=== PATIENT | male | born 1965 | race Caucasian/White ===

== ENCOUNTER → 2017-09-15 | Outpatient (CLI) | payer OTHER ==
--- NOTE | 2017-09-15 17:06 | PN ---
PROGRESS NOTE A 51-year-old male patient with severe ARPIT with an AHI of 51. The patient is coming in for a yearly check. I noted that his compliance has gotten worse over the past year and he mainly claims that this is related to the poor mask fit that he is getting. He is using a Mirage FX nose mask. He was somnolent and sleepy, as he is not using the CPAP on a regular basis. Note that during his last evaluation, I increase the CPAP pressure from 13 to 14, knowing that he had some residual apneas and hypopneas, while on treatment. His weight has been essentially stable. He has no other new problems or complaints. The patient is committed to go back on the CPAP therapy, especially that he has become much more somnolent and sleepy over the past 6 months. BP is 113/72, pulse is 88, respirations 16, temperature 97.4, saturation 97% on room air. Weight is 266. Height is 5 feet 10 inches, BMI 37.6. GENERAL APPEARANCE: Calm, comfortable. Head is atraumatic, normocephalic. Neck is short, supple. There is crowding of posterior pharynx. There is no goiter or neck masses. LUNGS: Diminished breath sounds. Otherwise clear. Heart sounds are regular. Normal S1, S2. No S3, S4. No murmurs. Abdomen is soft, nontender. No organomegaly. EXTREMITIES: No edema. No cyanosis or clubbing. Skin is negative for any ulcerations or wounds. IMPRESSION: 1. Severe symptomatic obstructive sleep apnea with an apnea-hypopnea index of 51. The patient's use has been suboptimal in part related to a poor mask fit. 2. Hypersomnia. 3. Sleep fragmentation secondary to obstructive sleep apnea. 4. Obesity with a BMI of 37.6. PLAN: 1. The patient was educated about the use of CPAP and its importance. 2. The patient was admitted to an AirFit N10 nose mask. 3. The patient was given heated tubing. 4. The patient will go back on using his CPAP and see me back in a year's time, earlier if needed. I will be with the change in the mask interface, the treatment will be much more successful. Will continue to follow. MMODL / IJN: [id number] /
== END | disposition home or self-care (01) ==
LOC: SLEEP 15:39
PROVIDERS: ATTEND Internal Medicine Critical Care Medicine
DX: G47.33 Obstructive sleep apnea (adult) (pediatric) (principal); E66.9 Obesity, unspecified; Z99.89 Dependence on other enabling machines and devices; Z68.37 Body mass index [BMI] 37.0-37.9, adult

== ENCOUNTER → 2018-06-28 | Outpatient (CLI) | payer OTHER ==
--- NOTE | 2018-06-28 07:44 | US ---
EXAMINATION TYPE: US liver DATE OF EXAM: 06/28/2018 COMPARISON: 12/28/13 CLINICAL HISTORY: R94.5 Elevated liver enzymes. EXAM MEASUREMENTS: Liver Length: 16.7 cm Gallbladder Wall: 0.4 cm CBD: 0.4 cm Right Kidney: 8.8 x 4.8 x 6.2 cm Pancreas: Obscured by bowel gas Liver: Scanned intercostally, large, barrel chested male, best scan window. There is increased echog enicity of the hepatic parenchyma with diminished visualization of the portal triads most commonly re lating to hepatic steatosis and limiting evaluation for underlying hepatic masses. Gallbladder: Wall echo shadow sign indicates the gallbladder filled with gallstones. Evidence for sonographic Xiao's sign: no CBD: wnl Right Kidney: No hydronephrosis or masses seen IMPRESSION: 1. Hyperechoic hepatic echotexture suggestive of hepatic steatosis. Correlate with liver function errol ts. 2. Cholelithiasis without current sonographic evidence of acute cholecystitis.
== END | disposition home or self-care (01) ==
LOC: RADUSWWP 06:51
PROVIDERS: ATTEND Internal Medicine
DX: K80.20 Calculus of gallbladder without cholecystitis without obstruction (principal)
CPT/HCPCS: 76705

== ENCOUNTER 2018-09-23 06:46 | Day surgery (SDC) | payer OTHER ==
[2018-09-20 09:52] VITALS: BMI 36.2
[~2018-09-23 06:46] MED LIST: DEXAMETHASONE SOD PHOSPHATE 10 MG/ML 1 ML VIAL IV ONE; HEPARIN SODIUM,PORCINE 5,000 UNIT/ML 1 ML VIAL SQ ONE; LACTATED RINGERS 1,000 ML IV SCH; LIDOCAINE 1% 20 ML VIAL (10MG/ML) FOR IV START INTRADERMA PRN; ONDANSETRON 4 MG/2 ML VIAL IVP ONE; SCOPOLAMINE 1.5MG/72HR PATCH TRANSDERM ONE; ceFAZolin IN SWFI 2 GM/20 ML SYRINGE IVP ONE
[2018-09-23] MEDS ORDERED: MIDAZOLAM 2 MG/2 ML VIAL IV ONE (07:42)
[2018-09-23] MEDS ORDERED: GLYCOPYRROLATE 0.2 MG/ML 2 ML VIAL ONE (07:46)
[2018-09-23] MEDS ORDERED: SUCCINYLCHOLINE CHLORIDE 100 MG/5 ML SYR IV ONE (07:46)
[2018-09-23] MEDS ORDERED: METOPROLOL TARTRATE 5 MG/5 ML VIAL IVP ONE (07:46)
[2018-09-23] MEDS ORDERED: PHENYLEPHRINE-0.9% NACL SYG 1 MG/10 ML SYRINGE ONE (07:46)
[2018-09-23] MEDS ORDERED: PROPOFOL 10 MG/ML 20 ML VIAL IV ONE (07:46)
[2018-09-23] MEDS ORDERED: fentaNYL (PF) 50 MCG/ML 2 ML AMP ONE (07:46)
[2018-09-23] MEDS ORDERED: NEOSTIGMINE 1 MG/ML 10 ML VIAL ONE (07:46)
[2018-09-23] MEDS ORDERED: ROCURONIUM BROMIDE 10 MG/ML 10 ML VIAL IV ONE (07:46)
--- NOTE | 2018-09-23 07:55 | P.GSHP ---
History of Present Illness H&P Date: 09/23/18 Chief Complaint: Right upper quadrant pain This is a 52-year-old male referred from Dr. Mancera. Patient presents today for laparoscopic cholecystectomy. Patient's had complaints of right quadrant pain. His recent ultrasound shows a gallstone in the neck of the gallbladder. Past Medical History Past Medical History: Rheumatoid Arthritis (RA) Additional Past Medical History / Comment(s): past hx shingles History of Any Multi-Drug Resistant Organisms: None Reported Past Surgical History: Hernia Repair Past Anesthesia/Blood Transfusion Reactions: No Reported Reaction Smoking Status: Never smoker - Past Family History Mother Family Medical History: Deep Vein Thrombosis (DVT) Medications and Allergies Home Medications Medication Instructions Recorded Confirmed Type No Known Home Medications 09/20/18 09/23/18 History Allergies Allergy/AdvReac Type Severity Reaction Status Date / Time latex Allergy Rash/Hives Verified 09/23/18 07:08 Surgical - Exam Vital Signs Temp Pulse Resp BP Pulse Ox 98.3 F 119 H 18 139/79 97 09/23/18 07:28 09/23/18 07:28 09/23/18 07:28 09/23/18 07:28 09/23/18 07:28 - General well developed, well nourished, no distress - Eyes PERRL - ENT normal pinna - Neck no masses - Respiratory normal expansion - Cardiovascular Rhythm: regular - Abdomen Abdomen: soft, non tender Assessment and Plan Assessment: History of gallstones, we'll perform laparoscopic cholecystectomy.
[2018-09-23] MEDS ORDERED: BUPIVACAIN-EPI 0.5%-1:200,000 30 ML VIAL SQ ONE ×2 (08:16→08:24)
[2018-09-23 09:19] VITALS: TEMP 97.9
[2018-09-23] MEDS: HYDROmorphone 0.5 MG/0.5 ML SYRINGE IVP PRN ×2 (09:26→09:31)
[2018-09-23 09:28] VITALS: RESP 16
[2018-09-23] MEDS: fentaNYL (PF) 50 MCG/ML 2 ML AMP IVP ONE ×4 (09:37→10:03)
[2018-09-23] MEDS ORDERED: SODIUM CHLORIDE 0.9% 1,000 ML IV ONE (09:48)
[2018-09-23] MEDS ORDERED: HYDROcodone/APAP 7.5-325MG 1 EACH TAB PO ONE (10:30)
[2018-09-23 11:07] VITALS: BP 136/81; PULSE 107
--- NOTE | 2018-10-09 10:38 | P.OP ---
Date of Procedure: 09/23/18 Preoperative Diagnosis: Cholecystitis Postoperative Diagnosis: Cholecystitis Procedure(s) Performed: Laparoscopic cholecystectomy Anesthesia: NETTIE Surgeon: Naga Mitchell Pathology: other (Gallbladder) Condition: stable Disposition: PACU Description of Procedure: The patient was placed on the operating table. The patient received a general endotracheal tube anesthesia. The patients abdomen was prepped and draped in the usual sterile fashion. Through an infraumbilical stab incision, the fascia of the anterior abdominal wall was grasped with a pair of Kochers and then the Veress needle was placed in the peritoneal cavity. Position of the Veress needle was confirmed with positive drop test. The abdomen was then insufflated. After adequate insufflation, the 10 mm trocar was placed in the peritoneal cavity. Following this the laparoscope was placed in the peritoneal cavity. The patient was placed in the head-up, right side up position and then a 5 mm trocar was placed in the right lateral and right subcostal position under direct visualization. A 8 mm trocar was placed in the epigastric position. The gallbladder was grasped in the fundus and infundibulum. Traction on the gallbladder was placed in the lateral and the cephalad positions. The triangle of Calot was visualized.. The cystic duct was bluntly dissected until the union of the cystic duct and common bile duct was seen. The cystic duct was then divided and sealed with the Harmonic scissors. A PDS Endoloop was then placed throughout the cystic duct stump. The cystic artery divided and sealed with the Harmonic scissors. The gallbladder was then removed from the liver bed using Harmonic scissors. The gallbladder was then extracted through the epigastric port site. Operative field was checked for any bleeding spots and Harmonic scissors was used to coagulate the liver bed. The abdomen was irrigated. The trocars were removed. The skin was closed using interrupted 3-0 Vicryl suture. Dermabond dressing were applied. The patient tolerated the procedure well.
== END 2018-09-23 11:38 | disposition home or self-care (01) ==
LOC: OR 06:46
PROVIDERS: ATTEND Surgery
DX: K80.10 Calculus of gallbladder with chronic cholecystitis without obstruction (principal); M06.9 Rheumatoid arthritis, unspecified; R00.0 Tachycardia, unspecified; G47.33 Obstructive sleep apnea (adult) (pediatric); Z87.891 Personal history of nicotine dependence; M19.90 Unspecified osteoarthritis, unspecified site; Z91.040 Latex allergy status
CPT/HCPCS: 88304; 47562; J2250; J1100; J2710; J2405; J3010; J2370; J0330; J2704; J1170

== ENCOUNTER → 2018-10-27 | Day surgery (SDC) | payer OTHER ==
[2018-10-19 15:55] VITALS: BMI 36.3
[~2018-10-27] MED LIST changes: +BUPIVACAIN-EPI 0.5%-1:200,000 30 ML VIAL SQ ONE; +BUPIVACAINE (PF) 0.5% 30 ML VIAL ONE; +GLYCOPYRROLATE 0.2 MG/ML 2 ML VIAL ONE; +HYDROcodone/APAP 7.5-325MG 1 EACH TAB PO ONE; +LACTATED RINGERS 1,000 ML IV ONE; +LIDOCAINE 1% INJ 10MG/ML (20 ML MDV) ONE; +LIDOCAINE 2%-EPI 1:100,000 20 ML VIAL ONE; +MIDAZOLAM 2 MG/2 ML VIAL IV ONE; +MIDAZOLAM 2 MG/2 ML VIAL ONE; +NEOSTIGMINE 1 MG/ML 10 ML VIAL ONE; -ONDANSETRON 4 MG/2 ML VIAL IVP ONE; +ONDANSETRON 4 MG/2 ML VIAL IVP PRN; +PROPOFOL 10 MG/ML 20 ML VIAL IV ONE; -SCOPOLAMINE 1.5MG/72HR PATCH TRANSDERM ONE; +SUCCINYLCHOLINE CHLORIDE VIAL 200 MG/10 ML VIAL IV ONE; +VECURONIUM 10 MG VIAL IV ONE; +fentaNYL (PF) 50 MCG/ML 2 ML AMP ONE
[2018-10-27] MEDS: fentaNYL (PF) 50 MCG/ML 2 ML AMP IV ONE ×5 (08:09→11:58)
--- NOTE | 2018-10-27 09:53 | P.ONQ ---
Anesthesiology Proc Note - PNB - Peripheral Nerve Block Performed Bilateral Rectus Abdominis Single Time Out Performed: Yes Procedure Start Time: 08:09 Indication: Acute Post-Operative Pain Sedation Type: Sedate with meaningful contact maintained Preparation: Sterile Prep Position: Supine Catheter: None Needle Types: Other (see comment) ([place]) Needle Size: 100mm (4") Needle Gauge: 21 Technique: Ultrasound Injectate: Other (see comment) (0.5% lidocaine/0.25% ropivacaine 30 mL per side) Adjunct: Epinephrine (see comment for dilution ratio) (1:200,000) Blood Aspirated: No Pain Paresthesia on Injection Noted: No Resistance on Injection: Normal Events: Uneventful and Well Tolerated
[2018-10-27 11:08] VITALS: TEMP 97.4
[2018-10-27] MEDS: HYDROmorphone 0.5 MG/0.5 ML SYRINGE IVP PRN ×2 (11:11→11:15)
--- NOTE | 2018-10-27 11:17 | P.GSHP ---
History of Present Illness H&P Date: 10/27/18 Chief Complaint: Incarcerated umbilical hernia This a 52-year-old male who presents today for laparoscopic robotic-assisted repair of incarcerated umbilical hernia. Patient complaints of pain at his umbilicus. Past Medical History Past Medical History: Rheumatoid Arthritis (RA) Additional Past Medical History / Comment(s): umbilical hernia,past hx shingles,tachycardia History of Any Multi-Drug Resistant Organisms: None Reported Past Surgical History: Cholecystectomy, Hernia Repair Additional Past Surgical History / Comment(s): cooper Past Anesthesia/Blood Transfusion Reactions: No Reported Reaction Additional Past Anesthesia/Blood Transfusion Reaction / Comment(s): no hx blood transfusion Smoking Status: Never smoker - Past Family History Mother Family Medical History: Deep Vein Thrombosis (DVT) Medications and Allergies Home Medications Medication Instructions Recorded Confirmed Type HYDROcodone/APAP 7.5-325MG [[place] 1 tab PO Q4H PRN 3 Days #18 tab 09/23/18 10/19/18 Rx 7.5-325] Acetaminophen Tab [Tylenol Tab] 500 - 1,000 mg PO Q6HR PRN 10/19/18 10/27/18 History Adalimumab [Humira Pen] 40 mg SQ [id number] 10/19/18 10/19/18 History Allergies Allergy/AdvReac Type Severity Reaction Status Date / Time latex Allergy Rash/Hives Verified 10/19/18 15:48 Surgical - Exam Vital Signs Temp Pulse Resp BP Pulse Ox 97.9 F 118 H 16 130/72 97 10/27/18 08:00 10/27/18 08:00 10/27/18 08:00 10/27/18 08:00 10/27/18 08:00 - General well developed, well nourished, no distress - Eyes PERRL - ENT normal pinna - Neck no masses - Respiratory normal expansion - Cardiovascular Rhythm: regular - Abdomen Abdomen: soft, non tender Hernia: umbilical Assessment and Plan Assessment: Incarcerated we'll hernia. We'll perform laparoscopic robotic-assisted repair.
--- NOTE | 2018-10-27 11:19 | P.OP ---
Date of Procedure: 10/27/18 Preoperative Diagnosis: Incarcerated umbilical hernia Postoperative Diagnosis: Incarcerated incisional hernia Procedure(s) Performed: Laparoscopic robotic system repair of incarcerated incisional hernia Excision of incarcerated omentum fat Lysis of adhesions Anesthesia: NETTIE Surgeon: Naga Mitchell Estimated Blood Loss (ml): 10 Pathology: other (Incarcerated fat/omentum) Condition: stable Disposition: PACU Description of Procedure: The patient was placed on the operating table in the supine position. He received general anesthesia. His abdomen was prepped and draped usual fashion. Using a 5 mm optical trocar under direct visualization the peritoneal cavity was entered in the left upper quadrant. The abdomen was then insufflated. The laparoscope was placed back into the perineal cavity. Next a 8 mm robotic trocar was placed in the left lower quadrant and a 12 mm robotic trocar was placed in the left lateral position. The original 5 mm trocar was exchanged for a 8 mm robotic trocar. The patient's placed in the left side up position. And the patient was undocked the robot. There were adhesions to the abdominal wall. These were lysed with sharp dissection with cautery. The umbilical hernia was visualized. There appeared to be previous mesh placed. At this point an incision was made at the umbilicus and then using blunt and sharp dissection with cautery the incarcerated fat was dissected free. The fascial defect was closed with [id number] 0 Ethibond suture. Using hook cautery the peritoneum over the umbilical hernia was excised. e. Next a piece of 11 cm round ventral light ST mesh was placed into the. Cavity and secured with 2 OV lock suture. The patient was undocked the robot. The needles were retrieved. The fascia of the 12 mm trocar site was closed with 0 Ethibond suture. Skin was closed interrupted 3-0 Monocryl suture. Dermabond dressings was applied. Patient top procedure well and was sent to recovery room stable condition.
[2018-10-27 12:33] VITALS: BP 131/72; PULSE 108; RESP 16
== END ==
LOC: OR 07:03
PROVIDERS: ATTEND Surgery
DX: K43.0 Incisional hernia with obstruction, without gangrene (principal); K66.0 Peritoneal adhesions (postprocedural) (postinfection); M06.9 Rheumatoid arthritis, unspecified; Z79.899 Other long term (current) drug therapy; Z91.040 Latex allergy status
CPT/HCPCS: 49655; S2900; 64488; 88302

== ENCOUNTER → 2018-12-15 | Outpatient (CLI) | payer OTHER | END | disposition home or self-care (01) | LOC: LABWHC1 15:35 | PROVIDERS: ATTEND Nurse Practitioner Adult Health | DX: R00.0 Tachycardia, unspecified (principal) | CPT/HCPCS: 36415; 84443 ==

== ENCOUNTER → 2019-04-01 | Outpatient (CLI) | payer OTHER ==
[2019-04-01 10:34] LABS: INR 1.1 (<1.2); Prothrombin Time 11.6 sec (9.0-12.0)
[2019-04-01 10:38] LABS: HCT 39.6 % (39.0-53.0); HGB 12.6 gm/dL (13.0-17.5); MCH 32.1 pg (25.0-35.0); MCHC 31.8 g/dL (31.0-37.0); MCV 100.9 fL (80.0-100.0); Macrocytosis Slight; Mean Platelet Volume 7.3; Platelet Count 171 k/uL (150-450); RBC 3.93 m/uL (4.30-5.90); RDW 14.6 % (11.5-15.5)
[2019-04-01 16:16] LABS: Protein, Total 8.1 g/dL (6.2-8.2)
[2019-04-01 16:21] LABS: Iron Saturation 23.86 (15.00-50.00)
[2019-04-01 16:57] LABS: Albumin 3.1 g/dL (3.80-4.90); Albumin/Globulin Ratio 0.63 (1.60-3.17); Bilirubin, Conjugated 1.2 mg/dL (0.20-0.40); Bilirubin,Unconjugated 0.5 mg/dL; Globulin 4.9 g/dL (1.6-3.3); Total Bilirubin 1.7 mg/dL (0.2-1.2)
[2019-04-02 12:34] LABS: Ceruloplasmin 28.5 mg/dL (20.0-60.0)
[2019-04-04 11:07] LABS: ANA Pattern Speckled
[2019-04-04 14:01] LABS: Gamma Globulin 3.59 g/dL (0.70-1.50)
== END | disposition home or self-care (01) ==
LOC: LABWHC1 10:00
PROVIDERS: ATTEND Physician Assistant
DX: R94.5 Abnormal results of liver function studies (principal)
CPT/HCPCS: 36415; 80074; 80076; 82103; 82105; 82390; 82728; 83516; 83540; 83550; 84165; 85027; 85610; 86038; 86039

== ENCOUNTER 2019-04-25 08:02 | Day surgery (SDC) | payer OTHER ==
[2019-04-22 08:28] VITALS: BMI 33.7
[2019-04-25 08:40] VITALS: TEMP 98.4
[2019-04-25] MEDS ORDERED: LACTATED RINGERS 1,000 ML IV ONE (08:47)
[2019-04-25] MEDS ORDERED: LIDOCAINE 1% 20 ML VIAL (10MG/ML) FOR IV START INTRADERMA ONE (08:48)
--- NOTE | 2019-04-25 08:58 | P.GSHP ---
History of Present Illness H&P Date: 04/25/19 Chief Complaint: GERD, screening colonoscopy This a 53-year-old male who presents today for EGD and screening colonoscopy. Patient is issues with GERD. Past Medical History Past Medical History: Rheumatoid Arthritis (RA) Additional Past Medical History / Comment(s): current incisional hernia,past hx shingles,tachycardia, states current elevated liver enzymes being followed up History of Any Multi-Drug Resistant Organisms: None Reported Past Surgical History: Cholecystectomy, Hernia Repair Additional Past Surgical History / Comment(s): umb. hernia x2 w/mesh Past Anesthesia/Blood Transfusion Reactions: No Reported Reaction Additional Past Anesthesia/Blood Transfusion Reaction / Comment(s): no hx blood transfusion Smoking Status: Former smoker - Past Family History Mother Family Medical History: Deep Vein Thrombosis (DVT) Medications and Allergies Home Medications Medication Instructions Recorded Confirmed Type Hydrocodone/Acetaminophen [[place] 1 tab PO Q6HR PRN 04/21/19 04/25/19 History Hd 10-325 mg Tablet] Allergies Allergy/AdvReac Type Severity Reaction Status Date / Time latex Allergy Rash/Hives Verified 04/22/19 08:23 Surgical - Exam Vital Signs Temp Pulse Resp BP Pulse Ox 98.4 F 117 H 16 151/68 99 04/25/19 08:39 04/25/19 08:39 04/25/19 08:39 04/25/19 08:39 04/25/19 08:39 - General well developed, well nourished, no distress - Eyes PERRL - ENT normal pinna - Neck no masses - Respiratory normal expansion - Cardiovascular Rhythm: regular - Abdomen Abdomen: soft, non tender Assessment and Plan Assessment: GERD. We'll perform EGD. We'll also perform screening colonoscopy.
[2019-04-25] MEDS ORDERED: diphenhydrAMINE 50 MG/ML 1 ML VIAL ONE (09:02)
[2019-04-25] MEDS ORDERED: GLYCOPYRROLATE 0.2 MG/ML 2 ML VIAL ONE (09:02)
[2019-04-25] MEDS ORDERED: PROPOFOL 10 MG/ML 20 ML VIAL IV ONE (09:02)
[2019-04-25] MEDS ORDERED: LIDOCAINE 1% INJ 10MG/ML (20 ML MDV) ONE (09:02)
--- NOTE | 2019-04-25 09:31 | P.OP ---
Date of Procedure: 04/25/19 Preoperative Diagnosis: GERD Screening colonoscopy Postoperative Diagnosis: Antral gastritis Small sliding hiatal hernia Mild esophagitis Diverticulosis Procedure(s) Performed: EGD Colonoscopy Anesthesia: NETTIE Surgeon: Naga Mitchell Pathology: other (Antrum, esophagus) Condition: stable Disposition: PACU Description of Procedure: The patient's placed on the endoscopy table in the lateral position. Sees IV sedation. The gastroscope placed oropharynx passed in the esophagus and into the stomach. Scope was then placed through the pylorus. The first and second portion duodenum appeared normal. Scope summer back the antrum this appeared mildly inflamed. A biopsies performed. The scope was then retroflexed and remainder of the stomach appeared normal. The GE junction was at 38 7 is. There was a small sliding hiatal hernia. The distal esophagus was mildly inflamed a biopsies performed. The proximal esophagus appeared normal. Scope was withdrawn for patient. Next digital rectal exam was performed which revealed a few external hemorrhoid through the clot scope was then placed patient anus and passed throughout the entire colon. The ileocecal valve visualized. Cecum, ascending and transverse colon appeared normal. In the descending; was mild diverticular changes. The scope was then brought back the rectum this appeared normal. Scope withdrawn for patient.
[2019-04-25 09:48] VITALS: RESP 18
[2019-04-25 10:05] VITALS: BP 106/60; PULSE 113
== END 2019-04-25 10:39 | disposition home or self-care (01) ==
LOC: ORWHC2ENDO 08:02
PROVIDERS: ATTEND Surgery
DX: K29.50 Unspecified chronic gastritis without bleeding (principal); Z12.11 Encounter for screening for malignant neoplasm of colon; K21.0 Gastro-esophageal reflux disease with esophagitis; K44.9 Diaphragmatic hernia without obstruction or gangrene; M06.9 Rheumatoid arthritis, unspecified; Z87.891 Personal history of nicotine dependence; Z91.040 Latex allergy status; K57.30 Diverticulosis of large intestine without perforation or abscess without bleeding; Z90.49 Acquired absence of other specified parts of digestive tract; Z84.89 Family history of other specified conditions; Z79.891 Long term (current) use of opiate analgesic; K64.4 Residual hemorrhoidal skin tags
CPT/HCPCS: 88305; 45378; 43239; J1200; J2001; J2704

== ENCOUNTER → 2019-04-27 | Outpatient (CLI) | payer OTHER ==
[2019-04-27 15:19] LABS: Basophils # (A) 0.1 k/uL (0-0.2); Basophils % (A) 3 %; Eosinophils # (A) 0.6 k/uL (0-0.7); Eosinophils % (A) 11 %; HCT 39.6 % (39.0-53.0); HGB 12.5 gm/dL (13.0-17.5); Lymphocytes # (A) 0.7 k/uL (1.0-4.8); Lymphocytes % (A) 13 %; MCH 32.3 pg (25.0-35.0); MCHC 31.6 g/dL (31.0-37.0); MCV 102.1 fL (80.0-100.0); Macrocytosis Slight; Monocytes # (A) 0.3 k/uL (0-1.0); Monocytes % (A) 5 %; Neutrophils # (A) 3.6 k/uL (1.3-7.7); Neutrophils % (A) 65 %; Platelet Count 138 k/uL (150-450); RBC 3.87 m/uL (4.30-5.90); RDW 13.4 % (11.5-15.5); WBC 5.5 k/uL (3.8-10.6)
== END | disposition home or self-care (01) ==
LOC: LABPAT 14:23
PROVIDERS: ATTEND Surgery
DX: Z01.812 Encounter for preprocedural laboratory examination (principal); K43.0 Incisional hernia with obstruction, without gangrene
CPT/HCPCS: 85025; 93005

== ENCOUNTER 2019-05-03 05:50 | Day surgery (SDC) | payer OTHER ==
[2019-04-21 14:31] VITALS: BMI 33.7
[~2019-05-03 05:50] MED LIST changes: -BUPIVACAIN-EPI 0.5%-1:200,000 30 ML VIAL SQ ONE; -BUPIVACAINE (PF) 0.5% 30 ML VIAL ONE; -GLYCOPYRROLATE 0.2 MG/ML 2 ML VIAL ONE; -HYDROcodone/APAP 7.5-325MG 1 EACH TAB PO ONE; -LACTATED RINGERS 1,000 ML IV ONE; -LIDOCAINE 1% 20 ML VIAL (10MG/ML) FOR IV START INTRADERMA PRN; -LIDOCAINE 1% INJ 10MG/ML (20 ML MDV) ONE; -LIDOCAINE 2%-EPI 1:100,000 20 ML VIAL ONE; -MIDAZOLAM 2 MG/2 ML VIAL IV ONE; +MIDAZOLAM 2 MG/2 ML VIAL IV PRN; -MIDAZOLAM 2 MG/2 ML VIAL ONE; -NEOSTIGMINE 1 MG/ML 10 ML VIAL ONE; +ONDANSETRON 4 MG/2 ML VIAL IVP ONE; -ONDANSETRON 4 MG/2 ML VIAL IVP PRN; -PROPOFOL 10 MG/ML 20 ML VIAL IV ONE; +SCOPOLAMINE 1.5MG/72HR PATCH TRANSDERM ONE; -SUCCINYLCHOLINE CHLORIDE VIAL 200 MG/10 ML VIAL IV ONE; -VECURONIUM 10 MG VIAL IV ONE; -ceFAZolin IN SWFI 2 GM/20 ML SYRINGE IVP ONE; -fentaNYL (PF) 50 MCG/ML 2 ML AMP ONE
[2019-05-03] MEDS ORDERED: LIDOCAINE 1% 20 ML VIAL (10MG/ML) FOR IV START INTRADERMA ONE (06:14)
[2019-05-03] MEDS ORDERED: LACTATED RINGERS 1,000 ML IV ONE (06:39)
[2019-05-03] MEDS ORDERED: KETAMINE 10 MG/ML 20 ML VIAL ONE (08:02)
[2019-05-03] MEDS ORDERED: SUCCINYLCHOLINE CHLORIDE 100 MG/5 ML SYR IV ONE (08:02)
[2019-05-03] MEDS ORDERED: ROCURONIUM BROMIDE 10 MG/ML 10 ML VIAL IV ONE (08:02)
[2019-05-03] MEDS ORDERED: MIDAZOLAM 2 MG/2 ML VIAL ONE (08:02)
[2019-05-03] MEDS ORDERED: fentaNYL (PF) 50 MCG/ML 2 ML AMP ONE (08:02)
[2019-05-03] MEDS ORDERED: NEOSTIGMINE 1 MG/ML 10 ML VIAL ONE (08:02)
[2019-05-03] MEDS ORDERED: LIDOCAINE 1% INJ 10MG/ML (20 ML MDV) ONE (08:02)
[2019-05-03] MEDS ORDERED: HYDROmorphone (PF) 1 MG/ML ONE (08:02)
[2019-05-03] MEDS ORDERED: GLYCOPYRROLATE 0.2 MG/ML 2 ML VIAL ONE (08:02)
[2019-05-03] MEDS ORDERED: PROPOFOL 10 MG/ML 20 ML VIAL IV ONE (08:02)
[2019-05-03] MEDS ORDERED: KETOROLAC 30 MG/ML 1 ML VIAL ONE (08:02)
--- NOTE | 2019-05-03 08:11 | P.GSHP ---
History of Present Illness H&P Date: 05/03/19 Chief Complaint: Incisional hernia This a 53-year-old male status post development incisional hernia in the epigastric area related to previous laparoscopic ostectomy. Patient presents today for laparoscopic robotic-assisted repair. Past Medical History Past Medical History: Rheumatoid Arthritis (RA) Additional Past Medical History / Comment(s): current incisional hernia, past hx shingles,tachycardia, states current elevated liver enzymes being followed up History of Any Multi-Drug Resistant Organisms: None Reported Past Surgical History: Cholecystectomy, Hernia Repair Additional Past Surgical History / Comment(s): umb hernia repair x2 with mesh Past Anesthesia/Blood Transfusion Reactions: No Reported Reaction Additional Past Anesthesia/Blood Transfusion Reaction / Comment(s): no hx blood transfusion Additional Past Alcohol Use History / Comment(s): quit smoking approx 2003 - Past Family History Mother Family Medical History: Deep Vein Thrombosis (DVT) Medications and Allergies Home Medications Medication Instructions Recorded Confirmed Type Hydrocodone/Acetaminophen [[place] 1 tab PO Q6HR PRN 04/21/19 04/25/19 History Hd 10-325 mg Tablet] Allergies Allergy/AdvReac Type Severity Reaction Status Date / Time latex Allergy Rash/Hives Verified 04/22/19 08:23 Surgical - Exam Vital Signs Temp Pulse Resp BP Pulse Ox 97.9 F 112 H 18 134/65 97 05/03/19 06:12 05/03/19 06:12 05/03/19 06:12 05/03/19 06:12 05/03/19 06:12 - General well developed, well nourished, no distress - Eyes PERRL - ENT normal pinna - Neck no masses - Respiratory normal expansion - Cardiovascular Rhythm: regular - Abdomen Abdomen: soft, non tender Hernia: incisional (3 cm incisional hernia located epigastric area) Assessment and Plan Assessment: Incisional hernia. We'll perform laparoscopic robotic-assisted repair.
[2019-05-03] MEDS ORDERED: BUPIVACAINE (PF) 0.25% 30 ML VIAL SQ ONE ×2 (08:18→08:26)
[2019-05-03] MEDS ORDERED: LIDOCAINE 1%-EPI 1:100,000 20 ML VIAL SQ ONE (08:50)
[2019-05-03 09:36] VITALS: TEMP 98
[2019-05-03 09:40] VITALS: RESP 16
[2019-05-03] MEDS: HYDROmorphone 0.5 MG/0.5 ML SYRINGE IVP PRN ×2 (09:46→10:06)
[2019-05-03] MEDS ORDERED: HYDROcodone/APAP 10-325MG 1 EACH TAB PO ONE (10:55)
[2019-05-03 11:03] VITALS: BP 104/58; PULSE 110
--- NOTE | 2019-05-06 11:48 | P.OP ---
Date of Procedure: 05/03/19 Preoperative Diagnosis: Incisional hernia Postoperative Diagnosis: Incisional hernia Procedure(s) Performed: Laparoscopic robotic-assisted repair of incisional hernia Partial omentectomy Anesthesia: NETTIE Surgeon: Naga Mitchell Estimated Blood Loss (ml): 5 Pathology: other (omentum) Description of Procedure: The patient was placed on the operating table in the supine position. He received general anesthesia. His abdomen was prepped and draped usual fashion. Using a 5 mm optical trocar under direct visualization the peritoneal cavity was entered in the left upper quadrant. The abdomen was then insufflated. The laparoscope was placed back into the perineal cavity. Next a 8 mm robotic trocar was placed in the left lower quadrant and a 12 mm robotic trocar was placed in the left lateral position. The original 5 mm trocar was exchanged for a 8 mm robotic trocar. The patient's placed in the left side up position. And the patient was docked to the robot. The incisional hernia was visualized. Using hook cautery the peritoneum over the incisional hernia was excised. The incarcerated omentum was dissected free and sent to pathology. The fascial opening was repaired using 0V LOC suture. Next a piece of 11 cm round ventral light ST mesh was placed into the. Cavity and secured with 2 OV lock suture. The patient was undocked the robot. The needles were retrieved. The fascia of the 12 mm trocar site was closed with 0 Ethibond suture. Skin was closed interrupted 3-0 Monocryl suture. Dermabond dressings was applied. Patient tolerated procedure well and was sent to recovery room stable condition.
== END 2019-05-03 12:08 | disposition home or self-care (01) ==
LOC: OR 05:50
PROVIDERS: ATTEND Surgery
DX: K43.0 Incisional hernia with obstruction, without gangrene (principal); M06.9 Rheumatoid arthritis, unspecified; Z87.891 Personal history of nicotine dependence; Z90.49 Acquired absence of other specified parts of digestive tract; Z79.891 Long term (current) use of opiate analgesic; Z91.040 Latex allergy status
CPT/HCPCS: 49657; 86900; 86901; 86850; 88302; 36415; C1781; J2250; J1644; J1100; J2710; J0690; J2405; J2001; J3010; J1885; J1170 ×2; J0330; J2704

== ENCOUNTER → 2019-05-11 | Outpatient (CLI) | payer OTHER ==
--- NOTE | 2019-05-11 17:08 | MR ---
MR liver with and without contrast HISTORY: Abnormal liver function tests Multiplanar multisequence and dynamic postcontrast images obtained through the liver. Correlation ultrasound liver 06/28/2018 The liver shows heterogeneous signal. Dynamic contrast-enhanced images show some hypointense foci, no dular appearance in the periportal location, axial image 101. Initial postcontrast images are portal phase however rather than arterial phase. Accurate assessment of flash arterial enhancement cannot be ascertained on this study. The spleen is markedly enlarged measuring approximately 16 cm. Adrenal glands, kidneys are within nor mal limits. Aorta shows normal caliber. No retroperitoneal adenopathy. No significant ascites. Portal veins, right hepatic vein is patent. Remaining hepatic veins are not well seen, there is extensive a rtifact on the exam. Pancreas is unremarkable. Splenic vein is patent. No significant ascites. Gallbl adder is not seen. IMPRESSION: Exam is limited for evaluation to exclude hepatocellular carcinoma. Splenomegaly. Finding s suggest underlying cirrhosis.
== END | disposition home or self-care (01) ==
LOC: RADMRIMAIN 07:40
PROVIDERS: ATTEND Physician Assistant
DX: R16.1 Splenomegaly, not elsewhere classified (principal)
CPT/HCPCS: 74183; A9585

== ENCOUNTER 2019-06-01 08:50 | Day surgery (SDC) | payer OTHER ==
[2019-06-01 09:40] LABS: Mean Platelet Volume 6.6; Platelet Count 143 k/uL (150-450)
[2019-06-01 09:42] VITALS: TEMP 98.9
[2019-06-01 09:44] LABS: INR 1.1 (<1.2); Prothrombin Time 11.5 sec (9.0-12.0)
--- NOTE | 2019-06-01 09:49 | P.PCN ---
Date of Procedure: 06/01/19 Procedure(s) Performed: BRIEF HISTORY: Patient is a 53-year-old pleasant male scheduled for an elective colonoscopy as a part of screening for colon rectal neoplasia. PROCEDURE PERFORMED: Colonoscopy. PREOPERATIVE DIAGNOSIS: Screening for colon cancer. IV sedation per Anesthesia. PROCEDURE: After informed consent was obtained, the patient, was brought into the endoscopy unit. IV sedation was administered by Anesthesia under continuous monitoring. Digital rectal examination was normal. Initially the Olympus CF-160 flexible video colonoscope was then inserted in the rectum, gradually advanced into the cecum without any difficulty. Careful examination was performed as the scope was gradually being withdrawn. Ileocecal valve and the appendiceal orifice were visualized and appeared normal. Prep was excellent. Mucosa of the cecum, ascending colon, transverse colon, descending colon, sigmoid colon, and rectum appeared normal. Scattered sigmoid diverticula seen. Retroflexion was performed in the rectum and no lesions were seen. The patient tolerated the procedure well. IMPRESSION: Normal-appearing colon from rectum to cecum with no evidence of colorectal neoplasia Scattered tic sigmoid diverticulosis. RECOMMENDATIONS: Findings of this examination were discussed with the patient as well as his family. He was advised to have a repeat scanning colonoscopy in 10 years..
[2019-06-01] MEDS ORDERED: HYDROmorphone 0.5 MG/0.5 ML SYRINGE IVP STA (10:01)
--- NOTE | 2019-06-01 10:57 | US ---
EXAMINATION TYPE: US biopsy liver DATE OF EXAM: 06/01/2019 HISTORY: Elevated liver function tests. PROCEDURE: Maximal barrier technique was utilized. After informed consent, the skin overlying a suit able path to the right lobe of liver was localized using ultrasound, the skin was prepped and draped . Ultrasound was utilized with sterile technique. Lidocaine was used for local anesthesia. A skin ni ck made with a scalpel. Under direct ultrasound guidance, an 18-gauge needle was advanced into the r ight lobe of the liver and core biopsy obtained. Hemostasis was achieved. There was no immediate co mplication and patient remained in stable condition. Specimen submitted in formalin to Pathology. IMPRESSION: STATUS POST ULTRASOUND GUIDED CORE BIOPSY OF THE RIGHT LOBE OF THE LIVER, PATHOLOGY PENDI NG. PERFORMED BY THE UNDERSIGNED.
[2019-06-01 12:11] VITALS: RESP 16
[2019-06-01 14:17] VITALS: BP 120/64; PULSE 91
== END 2019-06-01 14:17 | disposition home or self-care (01) ==
LOC: RADPROMAIN 08:50
PROVIDERS: ATTEND Internal Medicine Gastroenterology
DX: R79.89 Other specified abnormal findings of blood chemistry (principal); R76.8 Other specified abnormal immunological findings in serum; M06.9 Rheumatoid arthritis, unspecified
CPT/HCPCS: 47000; 85049; 85610; 88313; 88307; 36415; 76942; J1170

== ENCOUNTER → 2019-06-14 | Outpatient (CLI) | payer OTHER ==
[2019-06-14 15:40] LABS: HCT 36.7 % (39.0-53.0); MCH 32.9 pg (25.0-35.0); MCHC 32.7 g/dL (31.0-37.0); MCV 100.7 fL (80.0-100.0); Mean Platelet Volume 6.1; Platelet Count 167 k/uL (150-450); RBC 3.65 m/uL (4.30-5.90); RDW 13.1 % (11.5-15.5); WBC 5.7 k/uL (3.8-10.6)
[2019-06-14 15:44] LABS: INR 1.1 (<1.2); Prothrombin Time 11.1 sec (9.0-12.0)
== END | disposition home or self-care (01) ==
LOC: LABWHC1 15:03
PROVIDERS: ATTEND Physician Assistant
DX: R74.8 Abnormal levels of other serum enzymes (principal)
CPT/HCPCS: 36415; 85027; 85610

== ENCOUNTER → 2019-06-21 | Outpatient (CLI) | payer OTHER ==
[2019-06-22 00:43] LABS: Albumin 3.2 g/dL (3.80-4.90); Albumin/Globulin Ratio 0.78 (1.60-3.17); Bilirubin, Conjugated 0.4 mg/dL (0.20-0.40); Bilirubin,Unconjugated 0.4 mg/dL; Globulin 4.1 g/dL (1.6-3.3); Total Bilirubin 0.8 mg/dL (0.3-1.2); Total Protein 7.3 g/dL (6.2-8.2)
== END | disposition home or self-care (01) ==
LOC: LABWHC1 14:58
PROVIDERS: ATTEND Physician Assistant
DX: K74.3 Primary biliary cirrhosis (principal)
CPT/HCPCS: 36415; 80076

== ENCOUNTER → 2019-07-14 | Outpatient (CLI) | payer OTHER ==
[2019-07-14 16:19] LABS: Albumin 3.3 g/dL (3.80-4.90); Albumin/Globulin Ratio 0.77 (1.60-3.17); Bilirubin, Conjugated 0.4 mg/dL (0.20-0.40); Bilirubin,Unconjugated 0.4 mg/dL; Globulin 4.3 g/dL (1.6-3.3); Total Bilirubin 0.8 mg/dL (0.3-1.2); Total Protein 7.6 g/dL (6.2-8.2)
== END | disposition home or self-care (01) ==
LOC: LABWHC1 09:29
PROVIDERS: ATTEND Physician Assistant
DX: K74.3 Primary biliary cirrhosis (principal)
CPT/HCPCS: 36415; 80076

== ENCOUNTER → 2019-09-14 | Outpatient (CLI) | payer OTHER ==
[2019-09-14 15:43] LABS: Basophils % (A) 0 %; Eosinophils # (A) 0.1 k/uL (0-0.7); Eosinophils % (A) 1 %; HCT 46.4 % (39.0-53.0); HGB 14.7 gm/dL (13.0-17.5); Lymphocytes # (A) 0.7 k/uL (1.0-4.8); Lymphocytes % (A) 9 %; MCH 30.8 pg (25.0-35.0); MCHC 31.7 g/dL (31.0-37.0); MCV 96.9 fL (80.0-100.0); Mean Platelet Volume 7.6; Monocytes # (A) 0.4 k/uL (0-1.0); Monocytes % (A) 5 %; Neutrophils # (A) 6.2 k/uL (1.3-7.7); Neutrophils % (A) 84 %; Platelet Count 154 k/uL (150-450); RBC 4.79 m/uL (4.30-5.90); WBC 7.4 k/uL (3.8-10.6)
[2019-09-14 15:54] LABS: INR 1.1 (<1.2); Prothrombin Time 11.6 sec (9.0-12.0)
--- NOTE | 2019-09-14 16:48 | XR ---
EXAMINATION TYPE: XR chest 2V DATE OF EXAM: 09/14/2019 COMPARISON: 08/26/2013 HISTORY: 53-year-old male recurrent cough and congestion TECHNIQUE: Frontal and lateral views FINDINGS: Heart normal size. Aorta and pulmonary vasculature within normal limits. Slight leftward patient rota tion ultrasound normal hilar shadows. Some asymmetric right hilar prominence likely relates to the ro tation. Chronic ununited fracture deformity distal left clavicle. No consolidation or pleural effusio n. IMPRESSION: Asymmetric right hilar prominence may relate to slight leftward patient rotation. Contrast-enhanced C T chest can exclude any underlying lymphadenopathy or mass. Otherwise, no acute process seen.
[2019-09-15 01:50] LABS: Albumin 3.4 g/dL (3.80-4.90); Albumin/Globulin Ratio 0.79 (1.60-3.17); Bilirubin, Conjugated 0.6 mg/dL (0.20-0.40); Bilirubin,Unconjugated 0.7 mg/dL; Globulin 4.3 g/dL (1.6-3.3); Total Bilirubin 1.3 mg/dL (0.3-1.2); Total Protein 7.7 g/dL (6.2-8.2)
== END | disposition home or self-care (01) ==
LOC: LABWHC1 14:50
PROVIDERS: ATTEND Physician Assistant
DX: R59.0 Localized enlarged lymph nodes (principal); K74.3 Primary biliary cirrhosis
CPT/HCPCS: 36415; 71046; 80076; 85025; 85610

== ENCOUNTER → 2020-04-16 | Outpatient (CLI) | payer OTHER ==
--- NOTE | 2020-04-16 18:24 | MR ---
EXAMINATION TYPE: MR cspine/lspine wo con DATE OF EXAM: 04/16/2020 COMPARISON: None HISTORY: Neck/lower back pain, RUE weakness Multiplanar multiecho imaging of the cervical spine and lumbar spine was performed with no contrast. Cervical vertebra have normal alignment. There is mild disc space narrowing of cervical vertebra. Cer vical spinal cord has fairly normal signal pattern. There is no edema. There is mild posterior disc b ulging from C3 to C7. There is narrowing of the spinal canal to 7.5 mm at C4-5. The brainstem is inta ct. There is no cervical compression fracture. There is no cervical paraspinal mass. There is mild le ft side C6-7 neural foraminal narrowing due to uncovertebral spurring. Lumbar vertebra have normal alignment. There is large hypertrophic anterior osteophyte and disc herni ation at L3-4. There is mild narrowing of the disc spaces from L2 to S1. There is small posterior L5- S1 disc herniation posteriorly on the right side. No impingement on the neural elements. The neural f oramina are fairly well-maintained in the lumbar spine. There is no lumbar compression fracture. I se e no evidence of any significant lumbar spinal stenosis. The sacroiliac joints appear intact. There i s no lumbar paraspinal mass. IMPRESSION: Multilevel cervical spondylotic changes. There is a mild relative spinal stenosis of 7.5 mm at C4-5. Mild left side C6-7 uncovertebral spurring. Mild spondylotic changes in the mid and lower lumbar spine. No spinal stenosis. No fracture.
== END | disposition home or self-care (01) ==
LOC: RADMRIMAIN 16:53
PROVIDERS: ATTEND Anesthesiology Pain Medicine
DX: M48.02 Spinal stenosis, cervical region (principal); M47.812 Spondylosis without myelopathy or radiculopathy, cervical region; M47.816 Spondylosis without myelopathy or radiculopathy, lumbar region
CPT/HCPCS: 72141; 72148

== ENCOUNTER 2020-09-06 08:05 | Observation (INO) | payer OTHER ==
[2020-09-06] MEDS ORDERED: SODIUM CHLORIDE 0.9% 500 ML 500 ML IV STA (08:24)
[2020-09-06] MEDS ORDERED: ASPIRIN 81 MG PO STA (08:24)
--- NOTE | 2020-09-06 08:40 | ED ---
Chest Pain HPI - General Source: patient, RN notes reviewed Mode of arrival: wheelchair Limitations: no limitations <Milan Flores - Last Filed: 09/06/20 10:21> <Lorraine Mckeon - Last Filed: 09/10/20 22:05> - General Chief Complaint: Chest Pain Stated Complaint: Chest pain/sob/feel heart racing Time Seen by Provider: 09/06/20 08:16 - History of Present Illness Initial Comments: This is a 54-year-old male presents emergency Department with chief complaint of chest pain. Patient states he woke up around 4 AM. Patient states she has a pressure in his chest. Patient states that he's had a history of tachycardia states that he seen cardiology several times and sent multiple monitors and stress test with no acute findings. Patient states that he is on no medications currently. Patient states he stopped and bottle a few weeks ago for rheumatoid arthritis. Patient denies any history of DVT or PE. Patient denies any diaphoresis, nausea vomiting. Patient does admit to mild shortness of breath no leg pain or leg swelling on the usual. (Milan Flores) - Related Data Home Medications Medication Instructions Recorded Confirmed HYDROcodone/APAP 7.5-325MG [[place] 1 tab PO BID PRN 09/06/20 09/06/20 7.5-325] Previous Rx's Medication Instructions Recorded Aspirin 81 mg PO DAILY 30 Days #30 chew 09/07/20 Allergies Allergy/AdvReac Type Severity Reaction Status Date / Time latex Allergy Rash/Hives Verified 09/06/20 09:06 Review of Systems ROS Other: All systems not noted in ROS Statement are negative. <Milan Flores - Last Filed: 09/06/20 10:21> ROS Other: All systems not noted in ROS Statement are negative. <Lorraine Mckeon - Last Filed: 09/10/20 22:05> ROS Statement: Those systems with pertinent positive or pertinent negative responses have been documented in the HPI. EKG Findings - EKG Comments: EKG Findings:: EKG performed at 8:20 sinus tachycardia rate of 111 KS 116 QRS 84 QT/QTC 334/[address] elevation or depression noted - EKG Results: EKG: interpreted by ERMD <Milan Flores - Last Filed: 09/06/20 10:21> Past Medical History Past Medical History: Rheumatoid Arthritis (RA) Additional Past Medical History / Comment(s): current incisional hernia, past hx shingles,tachycardia, states current elevated liver enzymes being followed up History of Any Multi-Drug Resistant Organisms: None Reported Past Surgical History: Cholecystectomy, Hernia Repair Additional Past Surgical History / Comment(s): umb hernia repair x2 with mesh Past Anesthesia/Blood Transfusion Reactions: No Reported Reaction Additional Past Anesthesia/Blood Transfusion Reaction / Comment(s): no hx blood transfusion Past Psychological History: No Psychological Hx Reported Smoking Status: Never smoker Past Alcohol Use History: Occasional Past Drug Use History: None Reported - Past Family History Mother Family Medical History: Deep Vein Thrombosis (DVT) <Milan lFores - Last Filed: 09/06/20 10:21> General Exam Limitations: no limitations General appearance: alert, in no apparent distress Head exam: Present: atraumatic, normocephalic, normal inspection Eye exam: Present: normal appearance, PERRL, EOMI. Absent: scleral icterus, conjunctival injection, periorbital swelling ENT exam: Present: normal exam, normal oropharynx, mucous membranes moist, TM's normal bilaterally Neck exam: Present: normal inspection, full ROM. Absent: tenderness, meningismus, lymphadenopathy Respiratory exam: Present: normal lung sounds bilaterally. Absent: respiratory distress, wheezes, rales, rhonchi, stridor Cardiovascular Exam: Present: normal rhythm, tachycardia, normal heart sounds. Absent: systolic murmur, diastolic murmur, rubs, gallop, clicks GI/Abdominal exam: Present: soft, normal bowel sounds. Absent: distended, tenderness, guarding, rebound, rigid Back exam: Present: full ROM. Absent: tenderness Neurological exam: Present: alert, oriented X3, CN II-XII intact Skin exam: Present: warm, dry, intact, normal color. Absent: rash <Milan Flores - Last Filed: 09/06/20 10:21> Course Vital Signs 09/06/20 09/06/20 09/06/20 08:11 08:30 09:00 Temperature 97.6 F Pulse Rate 120 H 121 H 101 H Respiratory 18 18 18 Rate Blood Pressure 149/91 151/93 150/91 O2 Sat by Pulse 95 96 97 Oximetry 09/06/20 09/06/20 09/06/20 09:30 10:00 10:30 Temperature Pulse Rate 101 H 97 99 Respiratory 18 18 18 Rate Blood Pressure 139/81 134/84 137/84 O2 Sat by Pulse 97 97 97 Oximetry 09/06/20 09/06/20 11:00 15:00 Temperature 98.2 F Pulse Rate 103 H 94 Respiratory 18 18 Rate Blood Pressure 140/85 134/78 O2 Sat by Pulse 99 99 Oximetry Chest Pain MDM <Milan Flores - Last Filed: 09/06/20 10:21> <Lorraine Mckeon - Last Filed: 09/10/20 22:05> - MDM Chest x-ray labs EKG reviewed no significant M Guillermo this time patient be kept for cardiac observation, cardiac rule out (Milan Flores) I was available for consultation in the emergency department. The history and physical exam were done by the midlevel provider. I was consulted for this patients care. I reviewed the case with the midlevel provider and based on their presentation of the patient, I agree with the assessment, medical decision making and plan of care as documented. Chart was dictated using [employer] dictation software. Attempts were made to correct any dictation errors however some typographical errors may persist. Patient was seen during a national state of emergency due to the Covid-19 pandemic. (Lorraine Mckeon) Disposition <Milan Flores - Last Filed: 09/06/20 10:21> <Lorraine Mckeon - Last Filed: 09/10/20 22:05> Clinical Impression: Chest pain Disposition: ADMITTED IP TO THIS HOSP Condition: Stable
[2020-09-06 08:46] LABS: Basophils % (A) 1 %; Eosinophils # (A) 0.4 k/uL (0-0.7); Eosinophils % (A) 9 %; HCT 41.6 % (39.0-53.0); Lymphocytes # (A) 0.9 k/uL (1.0-4.8); Lymphocytes % (A) 19 %; MCH 32.1 pg (25.0-35.0); MCHC 33.7 g/dL (31.0-37.0); MCV 95.1 fL (80.0-100.0); Mean Platelet Volume 7.4; Monocytes # (A) 0.3 k/uL (0-1.0); Monocytes % (A) 6 %; Neutrophils # (A) 2.9 k/uL (1.3-7.7); Neutrophils % (A) 63 %; RBC 4.38 m/uL (4.30-5.90); RDW 13.5 % (11.5-15.5); WBC 4.6 k/uL (3.8-10.6)
[2020-09-06 09:01] LABS: Anion Gap 9 mmol/L; Carbon Dioxide 21 mmol/L (22-30); Chloride 108 mmol/L (98-107); Glucose 96 mg/dL (74-99); Platelet Count 99 k/uL (150-450); Potassium 3.7 mmol/L (3.5-5.1); Sodium 138 mmol/L (137-145)
[2020-09-06 09:02] LABS: ALT 122 U/L (4-49); AST 99 U/L (17-59); African American GFR (CKD) >90 (>60 ml/min/1.73 sqM); Albumin 3.8 g/dL (3.5-5.0); Alkaline Phosphatase 108 U/L (38-126); Blood Urea Nitrogen 14 mg/dL (9-20); Calcium 8.4 mg/dL (8.4-10.2); Lipase 231 U/L (23-300); Magnesium 1.5 mg/dL (1.6-2.3); Non-African American GFR(CKD) 89 (>60 ml/min/1.73 sqM); Total Bilirubin 0.9 mg/dL (0.2-1.3); Total Protein 8.4 g/dL (6.3-8.2)
--- NOTE | 2020-09-06 09:02 | XR ---
EXAMINATION TYPE: XR chest 2V DATE OF EXAM: 09/06/2020 COMPARISON: 09/14/19 HISTORY: Shortness of breath TECHNIQUE: Frontal and lateral views of the chest are obtained. FINDINGS: Scattered senescent parenchymal changes noted. No evidence for infiltrate. No evidence for atelectasis. Heart size is stable. Mediastinal structures are stable and grossly unremarkable. No evidence for hilar prominence. Degenerative changes dorsal spine. IMPRESSION: 1. No evidence for acute pulmonary disease.
[2020-09-06 09:03] LABS: D-Dimer 0.46 mg/L FEU (<0.60); INR 1.1 (<1.2); Partial Thromboplastin Time 24.9 sec (22.0-30.0); Prothrombin Time 11.6 sec (9.0-12.0)
[2020-09-06] MEDS ORDERED: NITROGLYCERIN SL TABS 0.4 MG TAB SUBLINGUAL PRN (10:25)
[2020-09-06] MEDS ORDERED: HEPARIN SODIUM,PORCINE 5,000 UNIT/ML 1 ML VIAL IV ONE (10:25)
[2020-09-06] MEDS ORDERED: HEPARIN SODIUM,PORCINE 5,000 UNIT/ML 1 ML VIAL IV PRN (10:25)
[2020-09-06] MEDS ORDERED: HEPARIN SOD,PORK IN 0.45% NACL 25,000 UNIT in 0.45% NACL 1 250ML.BAG IV SCH (10:30)
[2020-09-06] MEDS ORDERED: Magnesium Replacement Protocol 1 EACH MISC MISCELLANE PRN (11:02)
--- NOTE | 2020-09-06 12:35 | ECHOF ---
Referral Reason:chest pain MEASUREMENTS -------- HEIGHT: 180.3 cm WEIGHT: 106.6 kg BP: RVIDd: 3.1 cm (< 3.3) IVSd: 1.2 cm (0.6 - 1.1) LVIDd: 3.7 cm (3.9 - 5.3) LVPWd: 1.4 cm (0.6 - 1.1) IVSs: 1.9 cm LVIDs: 2.3 cm LVPWs: 1.9 cm LAESV Index (A-L): 28.86 ml/m Ao Diam: 3.1 cm (2.0 - 3.7) AV Cusp: 2.0 cm (1.5 - 2.6) LA Diam: 3.3 cm (2.7 - 3.8) MV EXCURSION: 15.271 mm (> 18.000) MV EF SLOPE: 53 mm/s (70 - 150) EPSS: 0.5 cm MV E Wei: 0.83 m/s MV DecT: 188 ms MV A Wei: 1.14 m/s MV E/A Ratio: 0.73 RAP: 5.00 mmHg RVSP: 32.66 mmHg FINDINGS -------- Sinus rhythm. This was a technically good study. The left ventricular size is normal. There is mild concentric left ventricular hypertrophy. Overa ll left ventricular systolic function is normal with, an EF between 55 - 60 %. The diastolic fillin g pattern is normal for the age of the patient 8.99. The right ventricle is normal in size. Normal LA size by volume 22+/-6 ml/m2. The right atrial size is normal. The aortic valve is trileaflet, and appears structurally normal. No aortic stenosis or regurgitation. The mitral valve is normal. There is trace to mild mitral regurgitation. The tricuspid valve appears structurally normal. Mild tricuspid regurgitation present. Right vent ricular systolic pressure is normal at < 35 mmHg. There is no pulmonic regurgitation present. The aortic root size is normal. Normal inferior vena cava with normal inspiratory collapse consistent with estimated right atrial pre ssure of 5 mmHg. There is no pericardial effusion. CONCLUSIONS -------- 1. There is mild concentric left ventricular hypertrophy. 2. Overall left ventricular systolic function is normal with, an EF between 55 - 60 %. 3. Normal LA size by volume 22+/-6 ml/m2. 4. The aortic valve is trileaflet, and appears structurally normal. No aortic stenosis or regurgitati on. 5. There is trace to mild mitral regurgitation. 6. Mild tricuspid regurgitation present. 7. There is no pericardial effusion. STEREOTYPER APPRENTICE: Awa Foote RDCS
--- NOTE | 2020-09-06 13:31 | P.CRDCN ---
History of Present Illness History of present illness: HISTORY OF PRESENTING ILLNESS This is a pleasant 54-year-old male past medical history significant for rheumatoid arthritis, multiple abdominal surgeries and former nicotine dependence. He follows in the office with Dr. Acosta. We have been asked to see in consultation for chest pain. He states he woke up at 4:00 with a heavy sensation in his chest described as a tightness in mid-sternal region that was radiating to his right shoulder. The pain was not reproducible or associated with shortness of breath. He also feels his heart racing at times. He states he has a history of tachycardia. He has followed up with Dr. Acosta and has worn outpatient monitors all revealing sinus tachycardia. Echocardiogram obtained reveals preserved LV systolic function with ejection fraction 55-60% with mild tricuspid regurgitation. DIAGNOSTICS EKG reveals sinus tachycardia no ST or T-wave abnormalities with heart rate of 111. Chest xray negative for an acute cardiopulmonary process. Laboratory reviewed, WBC 4.6, hgb 14, plt 99, d-dimer 0.46, sodium 138, potassium 3.7, creatinine 0.97, magnesium 1.5, cardiac enzymes negative x2. He takes no daily cardiac medications. REVIEW OF SYSTEMS At the time of my exam: CONSTITUTIONAL: Denies fever or chills. CARDIOVASCULAR: Denies chest pain, shortness of breath, orthopnea, PND or palpitations. RESPIRATORY: Denies cough. GASTROINTESTINAL: Denies abdominal pain, diarrhea, constipation, nausea or vomiting. MUSCULOSKELETAL: Denies myalgias. NEUROLOGIC: Denies numbness, tingling, headacbe or weakness. ENDOCRINE: Denies fatigue, weight change, polydipsia or polyurina. GENITOURINARY: Denies burning, hematuria or urgency with micturation. HEMATOLOGIC: Denies history of anemia or bleeding. PHYSICAL EXAMINATION Blood pressure 140/85 heart rate 103 afebrile and maintaining oxygen saturation on room air. CONSTITUTIONAL: No apparent distress. HEENT: Head is normocephalic. Pupils are equal, round. Sclerae anicteric. Mucous membranes of the mouth are moist. No JVD. No carotid bruit. CHEST EXAMINATION: Lungs are clear to auscultation. No chest wall tenderness is noted on palpation or with deep breathing. HEART EXAMINATION: Regular rate and rhythm. S1, S2 heard. No murmurs, gallops or rub. ABDOMEN: Soft, nontender. Positive bowel sounds. EXTREMITIES: 2+ peripheral pulses, no lower extremity edema and no calf tenderness. NEUROLOGIC EXAMINATION: Patient is awake, alert and oriented x3. ASSESSMENT Chest pain Hypomagnesemia Transaminitis Sinus tachycardia PLAN Continue to obtain serial cardiac enzymes to rule out an acute event. Check TSH. Replace magnesium per protocol. Nothing by mouth after midnight tonight. Consider stress testing in the morning if enzymes are negative. Thank you kindly for this consultation. Nurse Practitioner note has been reviewed, I agree with a documented findings and plan of care. Patient was seen and examined. Past Medical History Past Medical History: Rheumatoid Arthritis (RA) Additional Past Medical History / Comment(s): current incisional hernia, past hx shingles,tachycardia, states current elevated liver enzymes being followed up History of Any Multi-Drug Resistant Organisms: None Reported Past Surgical History: Cholecystectomy, Hernia Repair Additional Past Surgical History / Comment(s): umb hernia repair x2 with mesh Past Anesthesia/Blood Transfusion Reactions: No Reported Reaction Additional Past Anesthesia/Blood Transfusion Reaction / Comment(s): no hx blood transfusion Past Psychological History: No Psychological Hx Reported Smoking Status: Never smoker Past Alcohol Use History: Occasional Past Drug Use History: None Reported - Past Family History Mother Family Medical History: Deep Vein Thrombosis (DVT) Medications and Allergies Home Medications Medication Instructions Recorded Confirmed Type HYDROcodone/APAP 7.5-325MG [[place] 1 tab PO BID PRN 09/06/20 09/06/20 History 7.5-325] Allergies Allergy/AdvReac Type Severity Reaction Status Date / Time latex Allergy Rash/Hives Verified 09/06/20 09:06 Physical Exam Vitals: Vital Signs Temp Pulse Resp BP Pulse Ox 09/06/20 11:00 103 H 18 140/85 99 09/06/20 10:30 99 18 137/84 97 09/06/20 10:00 97 18 134/84 97 09/06/20 09:30 101 H 18 139/81 97 09/06/20 09:00 101 H 18 150/91 97 09/06/20 08:30 121 H 18 151/93 96 09/06/20 08:11 97.6 F 120 H 18 149/91 95 Intake and Output 09/05/20 09/06/20 09/06/20 22:59 06:59 14:59 Other: Weight 106.594 kg Results 09/06/20 08:25 09/06/20 08:25 Cardiac Enzymes 09/06/20 09/06/20 09/06/20 Range/Units 08:25 08:25 11:44 AST 99 H (17-59) U/L Troponin I <0.012 <0.012 (0.000-0.034) ng/mL Coagulation 09/06/20 09/06/20 Range/Units 08:25 11:44 PT 11.6 (9.0-12.0) sec APTT 24.9 72.5 H (22.0-30.0) sec CBC 09/06/20 Range/Units 08:25 WBC 4.6 (3.8-10.6) k/uL RBC 4.38 (4.30-5.90) m/uL Hgb 14.0 (13.0-17.5) gm/dL Hct 41.6 (39.0-53.0) % Plt Count 99 L (150-450) k/uL Comprehensive Metabolic Panel 09/06/20 Range/Units 08:25 Sodium 138 (137-145) mmol/L Potassium 3.7 (3.5-5.1) mmol/L Chloride 108 H (98-107) mmol/L Carbon Dioxide 21 L (22-30) mmol/L BUN 14 (9-20) mg/dL Creatinine 0.97 (0.66-1.25) mg/dL Glucose 96 (74-99) mg/dL Calcium 8.4 (8.4-10.2) mg/dL AST 99 H (17-59) U/L ALT 122 H (4-49) U/L Alkaline Phosphatase 108 (38-126) U/L Total Protein 8.4 H (6.3-8.2) g/dL Albumin 3.8 (3.5-5.0) g/dL Current Medications Generic Name Dose Route Start Last Admin Trade Name Freq PRN Reason Stop Dose Admin Aspirin 325 mg 09/07/20 09:00 Aspirin 325 Mg Tab PO DAILY MARK Heparin Sodium (Porcine) 0 unit 09/06/20 10:25 Heparin Sodium,Porcine 5,000 Unit/Ml 1 Ml Vial IV Q6HR PRN Low PTT Protocol Heparin Sodium/Sodium Chloride 250 mls @ 10 mls/hr 09/06/20 10:30 09/06/20 10:39 25,000 unit/ Sodium Chloride IV 9.381 units/kg/hr .Q24H MARK 10 mls/hr Administration Protocol 9.381 UNITS/KG/HR Miscellaneous Information 1 each 09/06/20 11:02 Magnesium Replacement Protocol 1 Each Misc MISCELLANE DAILY PRN Per Protocol Protocol Nitroglycerin 0.4 mg 09/06/20 10:25 Nitroglycerin Sl Tabs 0.4 Mg Tab SUBLINGUAL Q5M PRN Chest Pain Intake and Output 09/05/20 09/06/20 09/06/20 22:59 06:59 14:59 Other: Weight 106.594 kg Patient Weight 09/07/20 06:59 Weight 106.594 kg 09/06/20 08:25 09/06/20 08:25
[2020-09-06] MEDS: MAGNESIUM SULFATE-D5W PMX 1 GM in DEXTROSE/WATER 1 100ML.BAG IVPB SCH ×2 (15:07→16:38)
[2020-09-06] MEDS ORDERED: HYDROcodone/APAP 7.5-325MG 1 EACH TAB PO PRN (23:37)
--- NOTE | 2020-09-06 23:43 | P.HPIM ---
History of Present Illness H&P Date: 09/06/20 Chief Complaint: Chest Pain Patient is a 54-year-old male with a known history of rheumatoid arthritis, sinus tachycardia and occasionally alcohol use-last time 2 days ago presents to ER with the complaints of chest pain mid retrosternal and radiating to the right upper chest started on 4 AM and woke him up from sleep. Patient felt like heart beating fast. Pain is sharp and lasting about few minutes. Associated with shortness of breath. No nausea vomiting or diaphoresis. Patient does have history of tachycardia and was seen by his french comber as an outpatient. He was on outpatient monitor but no arrhythmia was noted.Denied any fever or chills. No nausea vomiting or abdominal pain or diarrhea. Denied any recent illnesses or sick contacts. No dizziness or lightheadedness. No cough or sputum production. Chest x-ray showed no acute cardiopulmonary process EKG showed sinus tachycardia 2D echocardiogram showed ejection fraction 55 to 60% and mild concentric left ventricular hypertrophy and mild TR and MR noted. Laboratory data showed TSH level 0.940, magnesium 1.5 AST 99 ALT 122 and alk phos 108 COVID-19 PCR not detected D-dimer level is 0.46 not elevated and platelet count 99 Review of Systems Constitutional: Patient denies any fever or chills . No generalized weakness or weight loss. Abdomen: Patient denied nausea vomiting and diarrhea and abdominal pain. Cardiovascular: Patient does complain of chest pain associated with shortness of breath and palpitations. No leg swelling. No PND or orthopnea. Respiratory: patient denied any cough or sputum production. No shortness of breath Neurologic: Patient denied any numbness or tingling headache. Musculoskeletal: Patient denies any complaints of joint swelling or deformity. Skin: Negative Psychiatric: Negative Endocrine: No heat or cold intolerance. No recent weight gain. Genitourinary: No dysuria or hematuria. All other 14 point ROS negative except the above Past Medical History Past Medical History: Rheumatoid Arthritis (RA) Additional Past Medical History / Comment(s): current incisional hernia, past hx shingles,tachycardia, states current elevated liver enzymes being followed up History of Any Multi-Drug Resistant Organisms: None Reported Past Surgical History: Cholecystectomy, Hernia Repair Additional Past Surgical History / Comment(s): umb hernia repair x2 with mesh Past Anesthesia/Blood Transfusion Reactions: No Reported Reaction Additional Past Anesthesia/Blood Transfusion Reaction / Comment(s): no hx blood transfusion Past Psychological History: No Psychological Hx Reported Smoking Status: Never smoker Past Alcohol Use History: Occasional Additional Past Alcohol Use History / Comment(s): quit smoking approx 2003 Past Drug Use History: None Reported - Past Family History Mother Family Medical History: Deep Vein Thrombosis (DVT) Medications and Allergies Home Medications Medication Instructions Recorded Confirmed Type HYDROcodone/APAP 7.5-325MG [[place] 1 tab PO BID PRN 09/06/20 09/06/20 History 7.5-325] Allergies Allergy/AdvReac Type Severity Reaction Status Date / Time latex Allergy Rash/Hives Verified 09/06/20 09:06 Physical Exam Vitals: Vital Signs Temp Pulse Pulse Resp BP BP Pulse Ox 09/06/20 15:33 97.5 F L 89 16 129/69 97 09/06/20 15:00 98.2 F 94 18 134/78 99 09/06/20 11:00 103 H 18 140/85 99 09/06/20 10:30 99 18 137/84 97 09/06/20 10:00 97 18 134/84 97 09/06/20 09:30 101 H 18 139/81 97 09/06/20 09:00 101 H 18 150/91 97 09/06/20 08:30 121 H 18 151/93 96 09/06/20 08:11 97.6 F 120 H 18 149/91 95 Intake and Output 09/06/20 09/06/20 09/07/20 14:59 22:59 06:59 Intake Total 171 Balance 171 Intake: Intake, IV Titration 71 Amount Heparin Sod,Pork in 0.45% 71 NaCl 25,000 unit In 0.45 % NaCl 1 250ml.bag @ 9. 381 UNITS/KG/HR 10 mls/hr IV .Q24H [facility] Rx#: [id number] Oral 100 Other: Weight 106.594 kg 106.594 kg PHYSICAL EXAMINATION: Patient is lying in the bed comfortably, no acute distress, awake alert and oriented.. HEENT: Normocephalic. Neck is supple. Pupils reactive. Nostrils clear. Oral cavity is moist. Ears reveal no drainage. Neck reveals no JVD, carotid bruits, or thyromegaly. CHEST EXAMINATION: Trachea is central. Symmetrical expansion. Lung sen clear to auscultation and percussion. CARDIAC: Normal S1, S2 with no gallops. No murmurs ABDOMEN: Soft. Bowel sounds normal. No organomegaly. No abdominal bruits. Extremities: reveal no edema. No clubbing or cyanosis Neurologically awake, alert, oriented x3 with well-coordinated movements. No focal deficits noted Skin: No rash or skin lesions. Psychiatric: Coperative. Nonsuicidal Musculoskeletal: No joint swelling or deformity. Normal range of motion. Results CBC & Chem 7: 09/06/20 08:25 09/06/20 08:25 Labs: Abnormal Lab Results - Last 24 Hours (Table) 09/06/20 09/06/20 09/06/20 Range/Units 08:25 08:25 11:44 Plt Count 99 L (150-450) k/uL Lymphocytes # 0.9 L (1.0-4.8) k/uL APTT 72.5 H (22.0-30.0) sec Chloride 108 H (98-107) mmol/L Carbon Dioxide 21 L (22-30) mmol/L Magnesium 1.5 L (1.6-2.3) mg/dL AST 99 H (17-59) U/L ALT 122 H (4-49) U/L Total Protein 8.4 H (6.3-8.2) g/dL 09/06/20 Range/Units 16:26 Plt Count (150-450) k/uL Lymphocytes # (1.0-4.8) k/uL APTT 41.9 H (22.0-30.0) sec Chloride (98-107) mmol/L Carbon Dioxide (22-30) mmol/L Magnesium (1.6-2.3) mg/dL AST (17-59) U/L ALT (4-49) U/L Total Protein (6.3-8.2) g/dL Thrombosis Risk Factor Assmnt - DVT/VTE Prophylaxis DVT/VTE Prophylaxis: Pharmacologic Prophylaxis ordered - Choose All That Apply Each Factor Represents 1 point: Age 41-60 years Other Risk Factors: No Thrombosis Risk Factor Assessment Total Risk Factor Score: 1 Thrombosis Risk Factor Assessment Level: Low Risk Assessment and Plan Assessment: Atypical chest pain. Rule out ACS Persistent sinus tachycardia Mild transaminitis and thrombocytopenia Hypomagnesemia DVT prophylaxis Plan: Patient will be continued on telemetry monitoring. Serial EKG and troponin x3. Patient was started on heparin drip. Continue with aspirin check lipid profile. IV hydration. D-dimer is not elevated and TSH within normal limits. Patient denied any history of alcohol abuse. Occasional alcohol use last 2 days ago. Cardiology was consulted and 2D echocardiogram was ordered. Possible stress test tomorrow. will check hepatitis panel due to transaminitis and thrombocytopenia. Follow- up closely. Time with Patient: Greater than 30
[2020-09-07 05:40] LABS: Mean Platelet Volume 7.5
[2020-09-07 05:48] LABS: Platelet Count 90 k/uL (150-450)
[2020-09-07 07:42] VITALS: BP 132/76; PULSE 88; RESP 18; TEMP 97.7
[2020-09-07] MEDS ORDERED: ASPIRIN 81 MG PO SCH (09:00)
[2020-09-07] MEDS ORDERED: ASPIRIN 325 MG TAB PO SCH (09:00)
--- NOTE | 2020-09-07 10:00 | PN ---
PROGRESS NOTE Mr. Montoya is a 54-year-old male who was admitted with symptoms of chest discomfort. He is feeling well this morning. His breathing is stable. He denies any dizziness or palpitation. He denies any nausea. He has a prior history of smoking. His cardiac enzymes have been normal. He is in sinus mechanism. He had an echocardiogram that showed a preserved left ventricular size and systolic function. He continues to be at this time on aspirin once a day. PHYSICAL EXAMINATION: Blood pressure 130/70 with the heart rate in the 80s. LUNGS: Clear. HEART: Regular rate and rhythm. S1, S2. No S3. No rub. ABDOMEN: Soft, nontender. EXTREMITIES: No edema. IMPRESSION: 1. Chest discomfort of unclear etiology. No evidence for acute coronary syndrome. 2. Prior history of smoking. 3. History of arthritis. RECOMMENDATION: From the cardiac standpoint, I will stop the heparin. I will increase his activity. Proceed with obtaining a stress echocardiogram and if there is no evidence of inducible ischemia, I would expect he should be able to be discharged home today and followed as an outpatient. MMODL / IJN: [id number] /
[2020-09-07 11:11] LABS: Chol/HDL Ratio 2.26; LDL Cholesterol,Calculated 58.8 mg/dL (0.0-131.0); Magnesium 1.9 mg/dL (1.5-2.4); VLDL Calculation 18.2 mg/dL (5.00-40.00)
--- NOTE | 2020-09-07 12:58 | ECHOS ---
STRESS ECHOCARDIOGRAM LUMASON: N/A Vial INDICATIONS: Chest pain. MEDICATIONS: BASELINE HEART RATE: 92 BASELINE BLOOD PRESSURE: 148/76 MAXIMUM HEART RATE: 164 MAXIMUM BLOOD PRESSURE: 205/76 85% MPHR: 141 100% MPHR: 166 METS: 7.7 MAXIMUM STAGE REACHED: 3 TOTAL EXERCISE TIME: 6 minutes 39 seconds CLINICAL INFORMATION: Baseline rhythm is sinus mechanism, rate of 92, normal axis and intervals, early repolarization changes. Baseline blood pressure 148/76 mmHg. Patient exercised on Leandro protocol for 6 minutes 39 seconds reaching peak rate 164 beats per minute which is equal to 99% maximum predicted heart rate. Peak blood pressure 205/76 mmHg. Test was terminated secondary to fatigue. There was no chest pain. Electrocardiograph monitoring revealed no evidence of diagnostic ischemic ST deviation. Baseline echocardiogram revealed normal wall motion. At peak exercise, there was normal wall motion augmentation with no hypokinesis or dyskinesis. CONCLUSION: 1. Average exercise tolerance with normal electrocardiograph response to exercise. 2. Normal stress echocardiogram with no evidence of stress-induced ischemia. MMODL / IJN: [id number] /
--- NOTE | 2020-09-07 15:37 | P.DS ---
Providers Date of admission: 09/06/20 10:24 Expected date of discharge: 09/07/20 Attending physician: Margy Lambert Consults: 09/06/20 10:25 Consult Physician Urgent Consulting Provider: Saurabh Chamberlain Consult Reason/Comments: chest pain Do you want consulting provider notified?: Yes Primary care physician: Fiordaliza Coe [facility] Course: Final diagnosis Atypical chest pain. Ruled out ACS Persistent sinus tachycardia Mild transaminitis and thrombocytopenia Hypomagnesemia DVT prophylaxis Discharge disposition Patient is being discharged in a stable condition with guarded prognosis to home. Patient will follow-up with Dr. Mancera in the outpatient setting upon discharge. Patient will continue with a baby aspirin daily upon discharge. Patient also instructed to follow-up with cardiology in the outpatient setting. Total time taken is greater than 35 minutes. Hospital course Patient is a 54-year-old male with a known history of rheumatoid arthritis, sinus tachycardia and occasionally alcohol use-last time 2 days ago presents to ER with the complaints of chest pain mid retrosternal and radiating to the right upper chest started on 4 AM and woke him up from sleep. Patient felt like heart beating fast. Pain is sharp and lasting about few minutes. Associated with shortness of breath. No nausea vomiting or diaphoresis. Patient does have history of tachycardia and was seen by his legislative analyst as an outpatient. He was on outpatient monitor but no arrhythmia was noted.Denied any fever or chills. No nausea vomiting or abdominal pain or diarrhea. Denied any recent illnesses or sick contacts. No dizziness or lightheadedness. No cough or sputum production. Chest x-ray showed no acute cardiopulmonary process EKG showed sinus tachycardia 2D echocardiogram showed ejection fraction 55 to 60% and mild concentric left ventricular hypertrophy and mild TR and MR noted. Laboratory data showed TSH level 0.940, magnesium 1.5 AST 99 ALT 122 and alk phos 108 COVID-19 PCR not detected D-dimer level is 0.46 not elevated and platelet count 99 09/07/2020 Patient is seen and evaluated this morning and follow-up in is alert and oriented 3. Patient awaiting to undergo stress test with cardiology today. Cardiology reported a negative stress test and will follow-up outpatient as discussed and scheduled. She will also continue on a baby aspirin of 81 mg daily until follow-up. Patient denies any chest pain at this time. Currently no reports of chest pain, shortness of breath, or palpitations. Patient is afebrile. No reports of nausea or vomiting and patient is tolerating diet. Patient will be discharged home today. On exam vital signs are stable. Temp is 97.7F, pulse is 88, respirations are 18, blood pressure is 132/76, oxygen saturation is 98% on room air. Cardio S1, S2 are muffled. Respiratory system shows diminished breath sounds at the bases with no wheezing or rhonchi noted. Abdomen is soft and nontender. Nervous system shows no focal deficits. Please refer to medication reconciliation sheet for a list of medications. Patient Condition at Discharge: Stable Plan - Discharge Summary Discharge Rx Participant: No New Discharge Prescriptions: New Aspirin 81 mg PO DAILY 30 Days #30 chew Continue HYDROcodone/APAP 7.5-325MG [[place] 7.5-325] 1 tab PO BID PRN PRN Reason: Pain Discharge Medication List HYDROcodone/APAP 7.5-325MG [[place] 7.5-325] 1 tab PO BID PRN 09/06/20 [History] Aspirin 81 mg PO DAILY 30 Days #30 chew 09/07/20 [Rx] Follow up Appointment(s)/Referral(s): Talib Acosta MD [Family Provider] - 09/19/20 1:45 pm Logan Mancera MD [Primary Care Provider] - 09/10/20 1:40 pm Activity/Diet/Wound Care/Special Instructions: activity limited until follow up follow up with primary care provider upon discharge follow up with cardiology as scheduled continue current diet Discharge Disposition: HOME SELF-CARE
[2020-09-07 19:18] LABS: Hepatitis A Antibody IgM Non-Reactive (Non-Reactive); Hepatitis B Core IgM Non-Reactive (Non-Reactive); Hepatitis B Surface Antigen Non-Reactive (Non-Reactive); Hepatitis C IgG Antibody Non-Reactive (Non-Reactive)
== END 2020-09-07 13:45 | disposition home or self-care (01) ==
LOC: EC 08:05 → 6NMEDSUR 10:24
PROVIDERS: ADMIT Internal Medicine; ATTEND Internal Medicine
DX: R07.9 Chest pain, unspecified (principal); E83.42 Hypomagnesemia; R00.0 Tachycardia, unspecified; I51.7 Cardiomegaly; D69.6 Thrombocytopenia, unspecified; M06.9 Rheumatoid arthritis, unspecified; Z79.82 Long term (current) use of aspirin; Z87.891 Personal history of nicotine dependence; Z20.822 Contact with and (suspected) exposure to COVID-19; R74.01 Elevation of levels of liver transaminase levels
CPT/HCPCS: 96376 ×2; 96366 ×3; 93005 ×2; 96365; 96367; 99285; 36415; 93306; 93351; 85379; 83880; 80061; 80053; 80074; 84443; 83690; 83735 ×2; 84484; 85025; 85049; 85610; 85730 ×2; 87635; 71046; G0378 ×2; J1644 ×2; J3475

== ENCOUNTER → 2021-06-19 | Outpatient (CLI) | payer OTHER ==
[2021-06-19 12:53] LABS: HCT 41.7 % (39.0-53.0); HGB 13.8 gm/dL (13.0-17.5); MCH 31.9 pg (25.0-35.0); MCHC 33.1 g/dL (31.0-37.0); MCV 96.3 fL (80.0-100.0); Platelet Count 113 k/uL (150-450); RBC 4.33 m/uL (4.30-5.90); RDW 13.7 % (11.5-15.5); WBC 5.4 k/uL (3.8-10.6)
[2021-06-19 13:17] LABS: T4, Free (Free Thyroxine) 1.65 ng/dL (0.78-2.19)
[2021-06-19 19:39] LABS: Prostate Specific Antigen 1.7 ng/mL (0.00-3.50)
== END | disposition home or self-care (01) ==
LOC: LABWHC1 11:46
PROVIDERS: ATTEND Internal Medicine
DX: D69.6 Thrombocytopenia, unspecified (principal); R63.4 Abnormal weight loss
CPT/HCPCS: 36415; 83036; 84153; 84439; 84443; 84481; 85027

== ENCOUNTER → 2023-01-07 | Outpatient (CLI) | payer OTHER ==
[2023-01-07 13:54] LABS: INR 1.2 (<1.2); Partial Thromboplastin Time 27.8 sec (22.0-30.0); Prothrombin Time 12.5 sec (9.0-12.0)
[2023-01-07 20:02] LABS: ALT 111 U/L (10-49); AST 103 U/L (14-35); Albumin 3.6 d/dL (3.8-4.9); Alkaline Phosphatase 73 U/L (41-126); Blood Urea Nitrogen 16.3 mg/dL (9.0-27.0); Calcium 9.2 mg/dL (8.7-10.3); Carbon Dioxide 25.7 mmol/L (21.6-31.8); Chloride 107 mmol/L (96-109); Globulin 4.5 d/dL (1.6-3.3); Glucose 85 mg/dL (70-110); Sodium 142 mmol/L (135-145); Total Bilirubin 1.4 mg/dL (0.3-1.2); Total Protein 8.1 d/dL (6.2-8.2)
[2023-01-08 01:45] LABS: Basophils # (A) 0.05 X 10*3/uL (0.00-0.10); Basophils % (A) 1.4 %; Eosinophils # (A) 0.38 X 10*3/uL (0.04-0.35); Eosinophils % (A) 10.7 %; HCT 44.5 % (39.6-50.0); HGB 14.4 d/dL (12.0-15.0); Immature Platelet Fraction 6.2 % (1.1-6.1); Lymphocytes # (A) 0.61 X 10*3/uL (0.90-5.00); Lymphocytes % (A) 17.1 %; MCHC 32.4 d/dL (32.0-37.0); MCV 98.9 FL (80.0-97.0); Mean Platelet Volume 12.1 FL (9.5-12.2); Monocytes # (A) 0.39 X 10*3/uL (0.20-1.00); NRBC Per 100 WBC 0 X 10*3/uL (0.00-0.01); Neutrophils # (A) 2.12 X 10*3/uL (1.80-7.70); Neutrophils % (A) 59.5 %; Platelet Count 76 X 10*3/uL (140-440); RBC Morphology Normal (Normal); RDW 13.7 % (11.5-14.5); WBC 3.56 X 10*3/uL (4.50-10.00)
== END | disposition home or self-care (01) ==
LOC: LABWHC1 10:36
PROVIDERS: ATTEND Internal Medicine Gastroenterology
DX: K74.3 Primary biliary cirrhosis (principal)
CPT/HCPCS: 36415; 80053; 82105; 83516; 85025; 85610; 85730; 86038; 86039

== ENCOUNTER → 2023-01-12 | Outpatient (CLI) | payer OTHER ==
--- NOTE | 2023-01-12 08:27 | US ---
EXAMINATION TYPE: US abdomen complete DATE OF EXAM: 01/12/2023 COMPARISON: NONE CLINICAL INDICATION: Male, 57 years old with history of K74.3 PRIMARY BILIARY CIRRHOSIS; cholecystect kenzie. Cirrhosis TECHNIQUE: Multiple sonographic images of the abdomen are obtained. FINDINGS: EXAM MEASUREMENTS: Liver Length: 14.2 cm Gallbladder Wall: Surgically absent CBD: 0.7 cm Spleen: 16.6 cm Right Kidney: 8.1 x 4.2 x 5.0 cm Left Kidney: 12.5 x 6.1 x 5.3 cm DOPE HOUSE OPERATOR HELPER NOTES: Technical limitations due to large amount of overlying bowel content Pancreas: Obscured by bowel gas Liver: limited evaluation, only visualized intercostally, appears heterogeneous Gallbladder: Surgically absent Evidence for sonographic Xiao's sign: no CBD: visualized portion appears wnl Spleen: enlarged Right Kidney: appears atrophic Left Kidney: no evidence of hydronephrosis Upper IVC: Obscured by overlying bowel gas Abd Aorta: proximal obscured, visualized portions appear wnl The liver demonstrate increased echotexture. The intrahepatic portion of the IVC and proximal abdomi nal aorta are within normal limits. There is no evidence of cholelithiasis. Common bile duct is unr emarkable. The visualized portions of the pancreas are homogenous. The spleen is unremarkable. Kid neys are symmetric and free of hydronephrosis. No renal lesions are seen. IMPRESSION: Hepatic steatosis. No evidence for acute abdominal process.
== END | disposition home or self-care (01) ==
LOC: RADUSWWP 07:24
PROVIDERS: ATTEND Internal Medicine Gastroenterology
DX: K76.0 Fatty (change of) liver, not elsewhere classified (principal); K74.3 Primary biliary cirrhosis; Z90.49 Acquired absence of other specified parts of digestive tract
CPT/HCPCS: 76700

== ENCOUNTER 2023-02-11 16:53 | Observation (INO) | payer OTHER ==
[2023-02-11 17:10] LABS: Glucose,Whole Blood 87 mg/dL (70-110)
--- NOTE | 2023-02-11 17:12 | ED ---
Neuro HPI - General Chief Complaint: Neuro Symptoms/Deficit Stated Complaint: poss stroke Time Seen by Provider: 02/11/23 17:08 Source: EMS Mode of arrival: EMS Limitations: no limitations - History of Present Illness Is the patient presenting with stroke symptoms?: Yes Onset/Timin -: hour(s) Initial Comments: This patient is a 57-year-old man who presents with complaint of left facial numbness and droop. The patient states that he had noticed this sometime between noon and 1:00 this afternoon. The patient states that he went to go [employer]. When the symptoms had not resolved he felt he should be seen here. The patient's denies other complaints, no headache, chest pain, dyspnea, diaphoresis. Location: left face History of same: No Place: home Severity: mild Quality: weak, numb Improves With: none Worsens With: none On Anticoagulants: No Context: sudden onset Associated Symptoms: denies other symptoms Treatments Prior to Arrival: none - Related Data Home Medications: Home Medications Medication Instructions Recorded Confirmed HYDROcodone/APAP 7.5-325MG [[place] 1 tab PO BID PRN 09/06/20 02/11/23 7.5-325] Etanercept [Enbrel Sureclick] 50 mg SQ MO 02/11/23 02/11/23 ursodioL [Ursodiol] 500 mg PO BID 02/11/23 02/11/23 Previous Rx's Medication Instructions Recorded Artificial Tears Ointment 1 applic LEFT EYE QID 30 Days #1 02/13/23 [Lubrifresh Pm Ointment] each Aspirin 325 mg PO DAILY 30 Days #30 tab 02/13/23 Pantoprazole [Protonix] 40 mg PO AC-BID 30 Days #60 tab 02/13/23 atenoloL [Tenormin] 25 mg PO DAILY 30 Days #30 tab 02/13/23 predniSONE [Deltasone] 80 mg PO DAILY 15 Days #15 tab 02/13/23 valACYclovir HCL [Valtrex] 1,000 mg PO BID 7 Days #14 tab 02/13/23 Allergies/Adverse Reactions: Allergies Allergy/AdvReac Type Severity Reaction Status Date / Time latex Allergy Rash/Hives Verified 02/11/23 19:16 Review of Systems ROS Statement: Those systems with pertinent positive or pertinent negative responses have been documented in the HPI. ROS Other: All systems not noted in ROS Statement are negative. Constitutional: Denies: fever, chills Eyes: Denies: vision change Respiratory: Denies: cough, dyspnea Cardiovascular: Denies: chest pain, palpitations, syncope Gastrointestinal: Denies: abdominal pain, vomiting, diarrhea Genitourinary: Denies: dysuria, hematuria Musculoskeletal: Denies: back pain Skin: Denies: rash Neurological: Reports: weakness, numbness. Denies: headache, confusion General Exam Limitations: no limitations General appearance: alert, in no apparent distress Head exam: Present: atraumatic, normocephalic Eye exam: Present: normal appearance, PERRL, EOMI. Absent: scleral icterus, conjunctival injection ENT exam: Present: normal oropharynx Neck exam: Present: normal inspection, full ROM Respiratory exam: Present: normal lung sounds bilaterally. Absent: respiratory distress, wheezes, rales, rhonchi, stridor Cardiovascular Exam: Present: regular rate, normal rhythm, normal heart sounds. Absent: systolic murmur, diastolic murmur, rubs, gallop GI/Abdominal exam: Present: soft. Absent: distended, tenderness, guarding, rebound, rigid, mass Extremities exam: Present: normal inspection, normal capillary refill. Absent: pedal edema, calf tenderness Back exam: Present: normal inspection. Absent: CVA tenderness (R), CVA tenderness (L) Neurological exam: Present: alert, oriented X3. Absent: CN II-XII intact, motor sensory deficit Expanded Patient oriented to: Present: person, place, time Speech: Present: fluid speech Cranial nerves: EOM's Intact: Normal, Tongue Deviation: Normal, Facial Sensation: Normal, Facial Palsy with Forehead Movement: Abnormal Left Cerebellar function: Finger to Nose: Normal Motor strength exam: RUE: 5, LUE: 5, RLE: 5, LLE: 5 Eye Response: (4) open spontaneously Motor Response: (6) obeys commands Verbal Response: (5) oriented Skin exam: Present: warm, dry, intact, normal color. Absent: rash Stroke MDM - Lab Data Result diagrams: 02/13/23 04:32 02/13/23 04:32 Lab Results 02/11/23 02/11/23 02/11/23 Range/Units 17:09 17:10 17:10 WBC 3.9 (3.8-10.6) k/uL RBC 4.74 (4.30-5.90) m/uL Hgb 15.2 (13.0-17.5) gm/dL Hct 44.7 (39.0-53.0) % MCV 94.3 (80.0-100.0) fL MCH 32.0 (25.0-35.0) pg MCHC 33.9 (31.0-37.0) g/dL RDW 13.3 (11.5-15.5) % Plt Count 66 L (150-450) k/uL MPV 8.9 Neutrophils % (Manual) 59 % Band Neuts % (Manual) 1 % Lymphocytes % (Manual) 24 % Monocytes % (Manual) 12 % Eosinophils % (Manual) 4 % Neutrophils # (Manual) 2.30 (1.3-7.7) k/uL Lymphocytes # (Manual) 0.94 L (1.0-4.8) k/uL Monocytes # (Manual) 0.47 (0-1.0) k/uL Eosinophils # (Manual) 0.16 (0-0.7) k/uL Nucleated RBCs 0 (0-0) /100 WBC Manual Slide Review Performed PT 11.9 (9.0-12.0) sec INR 1.2 H (<1.2) APTT 27.2 (22.0-30.0) sec Sodium (137-145) mmol/L Potassium (3.5-5.1) mmol/L Chloride (98-107) mmol/L Carbon Dioxide (22-30) mmol/L Anion Gap mmol/L BUN (9-20) mg/dL Creatinine (0.66-1.25) mg/dL Est GFR (CKD-EPI)AfAm (>60 ml/min/1.73 sqM) Est GFR (CKD-EPI)NonAf (>60 ml/min/1.73 sqM) Glucose (74-99) mg/dL POC Glucose (mg/dL) 87 (70-110) mg/dL POC Glu Pipe Smoking Machine Operator ID [email or web address] Calcium (8.4-10.2) mg/dL Total Bilirubin (0.2-1.3) mg/dL AST (17-59) U/L ALT (4-49) U/L Alkaline Phosphatase (38-126) U/L Creatine Kinase (55-170) U/L Troponin I (0.000-0.034) ng/mL Total Protein (6.3-8.2) g/dL Albumin (3.5-5.0) g/dL 02/11/23 02/11/23 Range/Units 17:10 17:10 WBC (3.8-10.6) k/uL RBC (4.30-5.90) m/uL Hgb (13.0-17.5) gm/dL Hct (39.0-53.0) % MCV (80.0-100.0) fL MCH (25.0-35.0) pg MCHC (31.0-37.0) g/dL RDW (11.5-15.5) % Plt Count (150-450) k/uL MPV Neutrophils % (Manual) % Band Neuts % (Manual) % Lymphocytes % (Manual) % Monocytes % (Manual) % Eosinophils % (Manual) % Neutrophils # (Manual) (1.3-7.7) k/uL Lymphocytes # (Manual) (1.0-4.8) k/uL Monocytes # (Manual) (0-1.0) k/uL Eosinophils # (Manual) (0-0.7) k/uL Nucleated RBCs (0-0) /100 WBC Manual Slide Review PT (9.0-12.0) sec INR (<1.2) APTT (22.0-30.0) sec Sodium 138 (137-145) mmol/L Potassium 3.8 (3.5-5.1) mmol/L Chloride 104 (98-107) mmol/L Carbon Dioxide 26 (22-30) mmol/L Anion Gap 8 mmol/L BUN 12 (9-20) mg/dL Creatinine 1.06 (0.66-1.25) mg/dL Est GFR (CKD-EPI)AfAm >90 (>60 ml/min/1.73 sqM) Est GFR (CKD-EPI)NonAf 78 (>60 ml/min/1.73 sqM) Glucose 86 (74-99) mg/dL POC Glucose (mg/dL) (70-110) mg/dL POC Glu Pipe Smoking Machine Operator ID Calcium 8.8 (8.4-10.2) mg/dL Total Bilirubin 1.4 H (0.2-1.3) mg/dL AST 100 H (17-59) U/L ALT 79 H (4-49) U/L Alkaline Phosphatase 89 (38-126) U/L Creatine Kinase 402 H (55-170) U/L Troponin I 0.017 (0.000-0.034) ng/mL Total Protein 9.1 H (6.3-8.2) g/dL Albumin 4.1 (3.5-5.0) g/dL - NIH Stroke Scale 1a. Level of Consciousness: (0) alert 1b. LOC Questions: (0) answers correctly 1c. LOC Commands: (0) performs tasks correctly 2. Best Gaze: (0) normal 3. Visual: (0) no visual loss 4. Facial Palsy: (2) partial paralysis 5a. Motor Arm Left: (0) no drift 5b. Motor Arm Right: (0) no drift 6a. Motor Leg Left: (0) no drift 6b. Motor Leg Right: (0) no drift 7. Limb Ataxia: (0) absent 8. Sensory: (0) normal 9. Best Language: (0) no aphasia 10. Dysarthria: (0) normal 11. Extinction/Inattention: (0) no abnormality - Thrombolytic Inclusion/Exclusion Thrombolytic Exclusion Criteria: Symptom Onset > 4.5 Hours - Medical Decision Making This patient is 57-year-old man who presents with left-sided facial weakness which had started between 4 and 5 hours prior to arrival here. The patient is made a code stroke. The workup does not reveal evidence of stroke on the computed tomography scan. There is no evident arterial occlusion on CT angiogram. The patient is admitted to have further workup and neurology consultation. Case discussed with admitting physician and orders written. 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 The patient is given steroid and will be given antiviral as there is 1 possible vesicular lesion on the patient's left ear. The patient had chest x-ray which I interpreted as negative for infiltrate, pneumothorax, congestive heart failure The patient had CT of the brain which I interpreted as negative for acute bony injury or intracranial hemorrhage. The CT angiogram was interpreted by radiology. Was pt. sent in by a medical professional or institution (Dr., PA, FLIGHT ATTENDANT/INFLIGHT MANAGER, urgent care, hospital, or assisted...) When possible be specific @ -[No] Did you speak to anyone other than the patient for history (EMS, parent, family, police, friend...)? What history was obtained from this source @ -[No] Did you review nursing and triage notes (agree or disagree)? Why? @ -[I reviewed and agree with nursing and triage notes] Were old charts reviewed (outside hosp., previous admission, EMS record, old EKG, old radiological studies, urgent care reports/EKG's, assisted records)? Report findings @ -[No old charts were reviewed] Differential Diagnosis (chest pain, altered mental status, abdominal pain women, abdominal pain men, vaginal bleeding, weakness, fever, dyspnea, syncope, headache, dizziness, GI bleed, back pain, seizure, CVA, palpatations, mental health, musculoskeletal)? @ -[Differential CVA Ischemic stroke, hemorrhagic stroke, brain tumor, atypical migraine, Wernicke's encephalopathy, seizure, multiple sclerosis, meningitis, encephalitis, hypoglycemia, Guillain-Laws, electrolytes disturbance, myasthenia gravis.... This is not meant to be an all-inclusive list EKG interpreted by me (3pts min.). @ -[As above] X-rays interpreted by me (1pt min.). @ -[As above CT interpreted by me (1pt min.). @ -[As above U/S interpreted by me (1pt. min.). @ -[None done] What testing was considered but not performed or refused? (CT, X-rays, U/S, labs)? Why? @ -[None] What meds were considered but not given or refused? Why? @ -[None] Did you discuss the management of the patient with other professionals (professionals i.e. NAZARIO Ryan, FLIGHT ATTENDANT/INFLIGHT MANAGER, lab, RT, psych nurse, psychiatric social worker, subsurface augmentee operator, teacher, bank operations officer, transplant case manager)? Give summary @ -[Case is discussed with admitting physician Was smoking cessation discussed for >3mins.? @ -[No] Was critical care preformed (if so, how long)? @ -[Yes, 30 minutes Were there social determinants of health that impacted care today? How? (Homelessness, low income, unemployed, alcoholism, drug addiction, transportation, low edu. Level, literacy, decrease access to med. care, fci, r ehab)? @ -[No] Was there de-escalation of care discussed even if they declined (Discuss DNR or withdrawal of care, Hospice)? DNR status @ -[No] What co-morbidities impacted this encounter? (DM, HTN, Smoking, COPD, CAD, Cance r, CVA, ARF, Chemo, Hep., AIDS, mental health diagnosis, sleep apnea, morbid obesity)? @ -[None] Was patient admitted / discharged? Hospital course, mention meds given and route, prescriptions, significant lab abnormalities, going to OR and other pertinent info. @ -[Patient is seen for what initially was appearing consistent with acute isch emic stroke, see the above note, I had completed the patient's workup and admission when he began to have evolution that appeared to be much more likely a Ariza's palsy, patient will be seen by neurology as inpatient Undiagnosed new problem with uncertain prognosis? @ -[No] Drug Therapy requiring intensive monitoring for toxicity (Heparin, Nitro, Insulin, Cardizem)? @ -[No] Were any procedures done? @ -[No] Diagnosis/symptom? @ -[Acute the lateral facial weakness. 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 @ -[Acute Uncomplicated (without systemic symptoms) or Complicated (systemic symptoms)? @ -[Uncomplicated Side effects of treatment? @ -[No] Exacerbation, Progression, or Severe Exacerbation? @ -[No] Poses a threat to life or bodily function? How? (Chest pain, USA, VT, pneumonia, PE, COPD, DKA, ARF, appy, cholecystitis, CVA, Diverticulitis, Homicidal, Suicidal, threat to staff... and all critical care pts) @ -[No] - EKG Data -: EKG Interpreted by Me EKG shows normal: sinus rhythm, axis (Normal), intervals (MD interval 108 ms, QTC 406 ms, both normal. QRS duration 129 ms, prolonged consistent with right bundle-branch block), QRS complexes (Right bundle-branch block.) Rate: tachycardia (Rate 114 bpm) Past Medical History Past Medical History: Rheumatoid Arthritis (RA) Additional Past Medical History / Comment(s): current incisional hernia, past hx shingles,tachycardia, states current elevated liver enzymes being followed up History of Any Multi-Drug Resistant Organisms: None Reported Past Surgical History: Cholecystectomy, Hernia Repair Additional Past Surgical History / Comment(s): umb hernia repair x2 with mesh Past Anesthesia/Blood Transfusion Reactions: No Reported Reaction Additional Past Anesthesia/Blood Transfusion Reaction / Comment(s): no hx blood transfusion Past Psychological History: No Psychological Hx Reported Smoking Status: Never smoker Past Alcohol Use History: Occasional Past Drug Use History: None Reported - Past Family History Mother Family Medical History: Deep Vein Thrombosis (DVT) Course Vital Signs 02/11/23 02/11/23 02/11/23 17:05 19:26 19:53 Temperature 97.8 F Pulse Rate 112 H 99 99 Respiratory 18 18 18 Rate Blood Pressure 141/73 135/89 144/85 O2 Sat by Pulse 100 99 97 Oximetry 02/11/23 02/11/23 02/11/23 20:23 20:53 21:23 Temperature Pulse Rate 89 88 84 Respiratory 18 18 18 Rate Blood Pressure 147/83 140/72 135/86 O2 Sat by Pulse 97 97 97 Oximetry 02/11/23 02/11/23 02/11/23 21:53 22:23 22:53 Temperature Pulse Rate 82 96 99 Respiratory 18 18 18 Rate Blood Pressure 138/81 132/80 136/76 O2 Sat by Pulse 97 97 93 L Oximetry 02/11/23 02/12/23 02/12/23 23:23 00:23 00:53 Temperature Pulse Rate 105 H 89 83 Respiratory 18 16 18 Rate Blood Pressure 127/71 134/80 123/77 O2 Sat by Pulse 93 L 97 95 Oximetry 02/12/23 02/12/23 02/12/23 01:53 02:49 03:53 Temperature Pulse Rate 96 87 94 Respiratory 16 18 18 Rate Blood Pressure 134/85 122/79 134/83 O2 Sat by Pulse 95 95 94 L Oximetry 02/12/23 02/12/23 02/12/23 04:49 05:53 06:49 Temperature Pulse Rate 100 92 105 H Respiratory 16 16 14 Rate Blood Pressure 126/77 125/69 129/73 O2 Sat by Pulse 95 96 94 L Oximetry 02/12/23 07:21 Temperature Pulse Rate 101 H Respiratory 16 Rate Blood Pressure 120/81 O2 Sat by Pulse 97 Oximetry Critical Care Time Critical Care Time: Yes (30 minutes) Disposition Clinical Impression: Facial weakness Disposition: ADMITTED IP TO THIS HOSP Condition: Good Is patient prescribed a controlled substance at d/c from ED?: No
--- NOTE | 2023-02-11 17:26 | CT ---
EXAMINATION TYPE: CT brain wo con for TPA DATE OF EXAM: 02/11/2023 COMPARISON: None INDICATION: cva DLP: 1216.4 mGycm, Automated exposure control for dose reduction was used. CONTRAST: None CT of the brain is performed utilizing 3 mm thick sections through the posterior fossa and 3 mm thick sections through the remaining calvarium. Study is performed within 24 hours of arrival to the hosp ital. No abnormal hyperdensity is present to suggest an acute intracranial hemorrhage. No mass lesion is evident. No acute infarcts are evident. Ventricles and sulci are appropriate for the patient age. Paranasal sinuses and mastoid air cells within the ywawk-nd-odla are clear. IMPRESSIONS: 1. No acute intracranial process. Follow-up MRI can be performed as clinically indicated.
[2023-02-11 17:41] LABS: INR 1.2 (<1.2); Partial Thromboplastin Time 27.2 sec (22.0-30.0); Prothrombin Time 11.9 sec (9.0-12.0)
[2023-02-11 17:45] LABS: HCT 44.7 % (39.0-53.0); HGB 15.2 gm/dL (13.0-17.5); MCHC 33.9 g/dL (31.0-37.0); MCV 94.3 fL (80.0-100.0); Mean Platelet Volume 8.9; RBC 4.74 m/uL (4.30-5.90); RDW 13.3 % (11.5-15.5); WBC 3.9 k/uL (3.8-10.6)
[2023-02-11 17:47] LABS: ALT 79 U/L (4-49); AST 100 U/L (17-59); African American GFR (CKD) >90 (>60 ml/min/1.73 sqM); Albumin 4.1 g/dL (3.5-5.0); Alkaline Phosphatase 89 U/L (38-126); Anion Gap 8 mmol/L; Blood Urea Nitrogen 12 mg/dL (9-20); Calcium 8.8 mg/dL (8.4-10.2); Carbon Dioxide 26 mmol/L (22-30); Chloride 104 mmol/L (98-107); Creatine Kinase 402 U/L (55-170); Glucose 86 mg/dL (74-99); Non-African American GFR(CKD) 78 (>60 ml/min/1.73 sqM); Potassium 3.8 mmol/L (3.5-5.1); Sodium 138 mmol/L (137-145); Total Bilirubin 1.4 mg/dL (0.2-1.3); Total Protein 9.1 g/dL (6.3-8.2)
[2023-02-11 17:50] LABS: Platelet Count 66 k/uL (150-450)
--- NOTE | 2023-02-11 18:04 | CT ---
EXAMINATION TYPE: CT angio head neck DATE OF EXAM: 02/11/2023 HISTORY: cva COMPARISON: None CT DLP: 584.8 mGycm. Automated Exposure Control for Dose Reduction was Utilized. TECHNIQUE: CTA scan of the neck is performed with IV Contrast, patient injected with 65cc mL of Isov ue 370, axial images are obtained, coronal and sagittal reformatted images are reviewed. Three-D tasia nstructed images are created on an independent workstation and reviewed. Source images are reviewed. FINDINGS: Carotid/Vascular Structures: There is a two-vessel arch with a common origin of the right subclavian and left common carotid artery. Right vertebral artery is dominant. Carotid bifurcations are widely p atent. No significant stenosis is evident. Internal carotid arteries and vertebral arteries are paten t to the skull base. Cervical of Mas: Vertebral basilar system appears normal. Posterior cerebral vasculature is unrema rkable. Internal carotid arteries bifurcate normally into A1 and M1 segments. A2 segments are normal. The anterior communicating artery is absent. Posterior communicating arteries are not identified. IMPRESSION: 1. No flow-limiting stenosis bilateral carotid bifurcations. 2. Normal variant [place] of [place] NASCET criteria was used in interpretation of this exam?
--- NOTE | 2023-02-11 18:05 | XR ---
EXAMINATION TYPE: XR chest 2V DATE OF EXAM: 02/11/2023 COMPARISON: 09/06/2020 INDICATION: Altered mental status TECHNIQUE: Frontal and lateral views of the chest are obtained. FINDINGS: The heart size is normal. The pulmonary vasculature is normal. The lungs are clear. IMPRESSION: 1. No acute pulmonary process.
[2023-02-11 19:27] LABS: Band Neutrophils % 1 %; Eosinophils # (M) 0.16 k/uL (0-0.7); Lymphocytes # (M) 0.94 k/uL (1.0-4.8); Monocytes # (M) 0.47 k/uL (0-1.0); Neutrophils % (M) 59 %; Nucleated Red Blood Cells 0 /100 WBC (0-0); Total Cells Counted 100
[2023-02-11] MEDS ORDERED: ACETAMINOPHEN TAB 325 MG TAB PO PRN (21:47)
[2023-02-11] MEDS ORDERED: predniSONE 20 MG TAB PO STA (21:51)
[2023-02-11] MEDS ORDERED: valACYclovir HCL 1,000 MG TABLET PO ONE (22:00)
[2023-02-11] MEDS: SODIUM CHLORIDE 0.9% 1,000 ML IV SCH (22:10)
--- NOTE | 2023-02-12 01:12 | HP ---
HISTORY AND PHYSICAL HISTORY OF PRESENT ILLNESS: A 57-year-old white male complaining of left facial numbness and droop. Noted some one this afternoon. He wanted to go . His symptoms resolved when he got to the emergency room. Denies any headaches, chest pain, dyspnea, diaphoresis, sudden onset numbness. PAST MEDICAL HISTORY: He currently has incisional hernia, past history of shingles, tachycardia. PAST SURGICAL HISTORY: Cholecystectomy, hernia repair. HOME MEDICATIONS: 1. Enbrel. 2. Ursodiol. 3. [place] 7.5. ALLERGIES: Latex. REVIEW OF SYSTEMS: A 14-point review of systems otherwise negative. No cough, congestion, fever, or chills. PHYSICAL EXAMINATION: VITAL SIGNS: Stable. Afebrile. Blood pressure is 130s to 140s over 70s to 80s, O2 of 97% to 99%, pulse is 90s to 112, temp 97.8. HEENT: Pupils equal, round, reactive. Normal to inspection. LUNGS: Clear. CARDIOVASCULAR: S1, S2. Regular rate and rhythm. ABDOMEN: Soft, and nontender. HEMATOLOGY: Negative Homans. PSYCH: Fair mood and affect. NEUROLOGIC: Normal facial palsy with forehead movements. Cerebellar negative. LABORATORY DATA: Labs reviewed. Lymphocytes are low. Platelet count is low at 62. EKG shows sinus rhythm, right bundle branch block, suspect pulmonary process. ASSESSMENT: History of rheumatoid arthritis, on Enbrel, elevated liver enzymes. Rule out transient ischemic attack versus stroke. Get neurologic consult. Prognosis guarded. Please see further orders. MMODL / IJN: [id number] /
[2023-02-12 03:13] LABS: ALT 72 U/L (4-49); African American GFR (CKD) >90 (>60 ml/min/1.73 sqM); Albumin 3.7 g/dL (3.5-5.0); Anion Gap 5 mmol/L; Blood Urea Nitrogen 14 mg/dL (9-20); Calcium 8.6 mg/dL (8.4-10.2); Carbon Dioxide 24 mmol/L (22-30); Chloride 106 mmol/L (98-107); Creatine Kinase 352 U/L (55-170); Glucose 95 mg/dL (74-99); Non-African American GFR(CKD) >90 (>60 ml/min/1.73 sqM); Sodium 135 mmol/L (137-145); Total Bilirubin 1.5 mg/dL (0.2-1.3); Total Protein 8.5 g/dL (6.3-8.2)
[2023-02-12 03:29] LABS: AST 94 U/L (17-59); Potassium 4.9 mmol/L (3.5-5.1)
[2023-02-12 03:30] LABS: Alkaline Phosphatase 74 U/L (38-126)
[2023-02-12] MEDS: HYDROcodone/APAP 7.5-325MG 1 EACH TAB PO PRN ×2 (08:59→20:46)
[2023-02-12] MEDS ORDERED: FAMOTIDINE 20 MG TAB PO SCH (09:00)
[2023-02-12 09:01] LABS: Chol/HDL Ratio 2.23 Ratio; LDL Cholesterol,Calculated 61.7 mg/dL (0.0-131.0); VLDL Calculation 16.24 mg/dL (5.00-40.00)
[2023-02-12] MEDS: ASPIRIN 325 MG TAB PO SCH (09:04)
[2023-02-12 09:28] LABS: Basophils % (A) 0 %; Eosinophils % (A) 0 %; HCT 45.7 % (39.0-53.0); HGB 14.9 gm/dL (13.0-17.5); Lymphocytes # (A) 0.4 k/uL (1.0-4.8); Lymphocytes % (A) 10 %; MCH 31.3 pg (25.0-35.0); MCHC 32.6 g/dL (31.0-37.0); MCV 96.1 fL (80.0-100.0); Mean Platelet Volume 8.8; Monocytes # (A) 0.1 k/uL (0-1.0); Monocytes % (A) 2 %; Neutrophils # (A) 3.3 k/uL (1.3-7.7); Neutrophils % (A) 86 %; RBC 4.75 m/uL (4.30-5.90); RDW 13.3 % (11.5-15.5); WBC 3.8 k/uL (3.8-10.6)
[2023-02-12 09:44] LABS: Platelet Count 68 k/uL (150-450)
[2023-02-12] MEDS: URSODIOL 500 MG PO SCH ×2 (10:12→20:47)
[2023-02-12] MEDS ORDERED: DEXTROSE 50% SYRINGE 50 ML IVP PRN ×2 (13:33)
--- NOTE | 2023-02-12 13:42 | P.CNNES ---
History of Present Illness Consult date: 02/12/23 Requesting physician: Fidel Piedra Reason for Consult: left facial weakness. History of Present Illness: This is a 57 year-old gentleman who presented to the emergency department because of left facial weakness. He stated yesterday at night around 11pm, he noticed left facial weakness, then later noticed drooling out of left mouth. He stated he's been having an earache for the past couple days out of the left ear. He's been noticing that he is having recent cough phlegm and his diffuse body aches. Denies any history of stroke in the past. Denies of any atrial fibrillation or flutter. She has history of of the liver function test and he follows up with the GI and was told it elevated due to his rheumatoid arthritis and this is chronic. He also has history of thrombocytopenia and he said that it is improving. He denies of any significant alcohol use appear denies of any illicit drug use. He is to smoke but that is chronic and has not done for at least 20 years or more. Some of the workup during the hospital visit consisted of: Platelet is 66,000. AST of 100 and ALT of 79 CK levels for 102 Lipid panel is triglyceride of 81, cholesterol 141, LDL [address] is reported as no acute process. Follow-up MRI can be performed as clinically indicated. Personally reviewed the CT and I agree with report. CT angiography is reported as no flow-limiting stenosis bilateral carotid bifurcation. Normal variant [place]. Review of Systems Review of system: The 12 point system was reviewed and apparent positive and negative per HPI. Past Medical History Past Medical History: Rheumatoid Arthritis (RA) Additional Past Medical History / Comment(s): current incisional hernia, past hx shingles,tachycardia, states current elevated liver enzymes being followed up History of Any Multi-Drug Resistant Organisms: None Reported Past Surgical History: Cholecystectomy, Hernia Repair Additional Past Surgical History / Comment(s): umb hernia repair x3 with mesh Past Anesthesia/Blood Transfusion Reactions: No Reported Reaction Additional Past Anesthesia/Blood Transfusion Reaction / Comment(s): no hx blood transfusion Past Psychological History: No Psychological Hx Reported Smoking Status: Never smoker Past Alcohol Use History: Occasional Additional Past Alcohol Use History / Comment(s): quit smoking approx 2003 Past Drug Use History: None Reported - Past Family History Mother Family Medical History: Deep Vein Thrombosis (DVT) Medications and Allergies Home Medications Medication Instructions Recorded Confirmed Type HYDROcodone/APAP 7.5-325MG [[place] 1 tab PO BID PRN 09/06/20 02/11/23 History 7.5-325] Etanercept [Enbrel Sureclick] 50 mg SQ MO 02/11/23 02/11/23 History ursodioL [Ursodiol] 500 mg PO BID 02/11/23 02/11/23 History Allergies Allergy/AdvReac Type Severity Reaction Status Date / Time latex Allergy Rash/Hives Verified 02/11/23 19:16 Physical Examination - Vital Signs Vital Signs: Vital Signs Temp Pulse Pulse Resp BP BP Pulse Ox 02/12/23 11:11 97.7 F 111 H 16 147/75 98 02/12/23 09:15 109 H 16 02/12/23 08:12 97.4 F L 109 H 16 152/89 100 02/12/23 07:21 101 H 16 120/81 97 02/12/23 06:49 105 H 14 129/73 94 L 02/12/23 05:53 92 16 125/69 96 02/12/23 04:49 100 16 126/77 95 02/12/23 03:53 94 18 134/83 94 L 02/12/23 02:49 87 18 122/79 95 02/12/23 01:53 96 16 134/85 95 02/12/23 00:53 83 18 123/77 95 02/12/23 00:23 89 16 134/80 97 02/11/23 23:23 105 H 18 127/71 93 L 02/11/23 22:53 99 18 136/76 93 L 02/11/23 22:23 96 18 132/80 97 02/11/23 21:53 82 18 138/81 97 02/11/23 21:23 84 18 135/86 97 02/11/23 20:53 88 18 140/72 97 02/11/23 20:23 89 18 147/83 97 02/11/23 19:53 99 18 144/85 97 02/11/23 19:26 99 18 135/89 99 02/11/23 17:05 97.8 F 112 H 18 141/73 100 Intake and Output 02/11/23 02/12/23 02/12/23 22:59 06:59 14:59 Intake Total 118 Balance 118 Intake: Oral 118 Other: Voiding Method Toilet Weight 105.687 kg 105.687 kg GENERAL: The patient is lying in bed and is not in acute distress. NEUROLOGICAL: Higher mental function: The patient is awake, alert, oriented to self, place and time. Patient is following commands. No aphasia and no neglect. Cranial nerves: The pupils are round, equal and reactive to light and accommodation. Visual sen are full to confrontation throughout. Extraocular movement is intact no nystagmus is noted. Facial sensation is normal to touch throughout. The facial strength is has left upper and lower extremity weakness. Hearing is normal bilaterally to hand rub. Tongue is midline and moved [id number] without any difficulty. No dysarthria is noted. Shoulder shrug is normal bilaterally. Motor: The strength is 5 over 5 throughout. Normal tone and bulk. Cerebellum: Normal finger to nose heel to perez bilaterally. Sensation: Sensation is normal to touch throughout. Reflexes (right/left): 2+ Plantars are downgoing bilaterally. Results - Laboratory Findings CBC and BMP: 02/12/23 08:38 02/12/23 02:26 Abnormal Lab Findings: Abnormal Labs 02/11/23 02/11/23 02/11/23 17:10 17:10 17:10 Plt Count 66 L Lymphocytes # Lymphocytes # (Manual) 0.94 L INR 1.2 H Sodium Total Bilirubin 1.4 H AST 100 H ALT 79 H Creatine Kinase 402 H Total Protein 9.1 H HDL Cholesterol 02/12/23 02/12/23 02:26 08:38 Plt Count 68 L Lymphocytes # 0.4 L Lymphocytes # (Manual) INR Sodium 135 L Total Bilirubin 1.5 H AST 94 H ALT 72 H Creatine Kinase 352 H Total Protein 8.5 H HDL Cholesterol 63.10 H Assessment and Plan Assessment: This is a 57-year-old gentleman who presented to our facility because of left upper and lower facial weakness that started around 11 PM on 02/11/2023 Acute left upper and lower extremity facial weakness appears bells palsy. Rule out any underlying other causes such as a stroke Elevated liver function is chronic and was told that due to rheumatoid arthritis and he follows up with GI Slightly elevated CK level History of thrombocytopenia and currently it's the in his 60s thousand Rheumatoid arthritis Plan: I ordered MRI of the brain with and without to rule out any central causes I placed the patient on prednisone 80 mg daily (for 14 days. Today is day 2/14 since received on in ED) and Valacyclovir 1000mg bid for 7 days if no stroke Recommend a left eye patch. Recommend the ointments of the left eye to avoid any corneal ulcers Recommend sugar monitoring and we'll defer the management to the primary team I ordered TSH, Lyme disease GI prophylaxis I started the patient on the orthotics 4 mg twice a day. We'll defer the rest of the medical management to the primary team. Plan discussed with the patient and his nurse was at bedside Thank you for the consultation Time with Patient: Greater than 30
[2023-02-12 15:08] LABS: T4, Free (Free Thyroxine) 2.01 ng/dL (0.78-2.19)
[2023-02-12] MEDS: valACYclovir HCL 1,000 MG TABLET PO SCH ×2 (15:33→20:46)
[2023-02-12] MEDS: atenoloL 25 MG TAB PO SCH ×2 (15:33→20:47)
[2023-02-12] MEDS: predniSONE 20 MG TAB PO SCH (15:34)
[2023-02-12 16:48] LABS: Glucose,Whole Blood 124 mg/dL (70-110)
[2023-02-12] MEDS: INSULIN ASPART (NovoLOG) 100 UNIT/ML VIAL SQ SCH ×2 (17:05→20:22)
[2023-02-12] MEDS: PANTOPRAZOLE 40 MG TABLET PO SCH (17:35)
[2023-02-12 20:20] LABS: Glucose,Whole Blood 103 mg/dL (70-110)
[2023-02-12] MEDS: SODIUM CHLORIDE 0.9% 1,000 ML IV SCH (20:22)
[2023-02-12 20:28] LABS: African American GFR (CKD) 80 (>60 ml/min/1.73 sqM); Anion Gap 5 mmol/L; Blood Urea Nitrogen 19 mg/dL (9-20); Calcium 8.8 mg/dL (8.4-10.2); Carbon Dioxide 26 mmol/L (22-30); Chloride 106 mmol/L (98-107); Glucose 122 mg/dL (74-99); Non-African American GFR(CKD) 69 (>60 ml/min/1.73 sqM); Potassium 4.9 mmol/L (3.5-5.1); Sodium 137 mmol/L (137-145)
[2023-02-13 04:54] LABS: Basophils % (A) 0 %; Eosinophils # (A) 0.1 k/uL (0-0.7); Eosinophils % (A) 1 %; HCT 43.3 % (39.0-53.0); HGB 14.8 gm/dL (13.0-17.5); Lymphocytes # (A) 0.6 k/uL (1.0-4.8); Lymphocytes % (A) 7 %; MCH 33.3 pg (25.0-35.0); MCHC 34.1 g/dL (31.0-37.0); MCV 97.5 fL (80.0-100.0); Mean Platelet Volume 9.5; Monocytes # (A) 0.3 k/uL (0-1.0); Monocytes % (A) 3 %; Neutrophils # (A) 7.6 k/uL (1.3-7.7); Neutrophils % (A) 88 %; RBC 4.44 m/uL (4.30-5.90); RDW 13.4 % (11.5-15.5); WBC 8.6 k/uL (3.8-10.6)
[2023-02-13 05:00] LABS: Platelet Count 78 k/uL (150-450)
[2023-02-13 05:04] LABS: ALT 52 U/L (4-49); AST 50 U/L (17-59); African American GFR (CKD) >90 (>60 ml/min/1.73 sqM); Albumin 3.3 g/dL (3.5-5.0); Alkaline Phosphatase 70 U/L (38-126); Anion Gap 5 mmol/L; Blood Urea Nitrogen 20 mg/dL (9-20); Calcium 8.6 mg/dL (8.4-10.2); Carbon Dioxide 24 mmol/L (22-30); Chloride 108 mmol/L (98-107); Creatine Kinase 118 U/L (55-170); Glucose 125 mg/dL (74-99); Non-African American GFR(CKD) 80 (>60 ml/min/1.73 sqM); Potassium 4.6 mmol/L (3.5-5.1); Sodium 137 mmol/L (137-145); Total Protein 7.7 g/dL (6.3-8.2)
[2023-02-13 05:55] LABS: Glucose,Whole Blood 122 mg/dL (70-110)
[2023-02-13] MEDS: INSULIN ASPART (NovoLOG) 100 UNIT/ML VIAL SQ SCH ×4 (05:55→19:57)
[2023-02-13] MEDS: PANTOPRAZOLE 40 MG TABLET PO SCH ×2 (06:10→17:27)
[2023-02-13] MEDS: URSODIOL 500 MG PO SCH ×2 (08:14→19:56)
[2023-02-13] MEDS: HYDROcodone/APAP 7.5-325MG 1 EACH TAB PO PRN ×2 (08:22→20:02)
[2023-02-13] MEDS: atenoloL 25 MG TAB PO SCH (08:23)
[2023-02-13] MEDS: ASPIRIN 325 MG TAB PO SCH (08:23)
[2023-02-13] MEDS: valACYclovir HCL 1,000 MG TABLET PO SCH ×2 (08:23→19:55)
[2023-02-13] MEDS: predniSONE 20 MG TAB PO SCH (08:23)
--- NOTE | 2023-02-13 08:37 | CT ---
EXAMINATION TYPE: CT chest wo con DATE OF EXAM: 02/13/2023 COMPARISON: None HISTORY: 57-year-old male tachycardia TECHNIQUE: Contiguous axial scanning of the chest without IV contrast. Coronal and sagittal reconstru ctions performed. CT DLP: 468.1 mGycm Automated exposure control for dose reduction was used. FINDINGS: The heart is normal size without pericardial effusion. Aorta normal caliber with bovine configuration to the aortic arch. Scattered nonenlarged mediastinal lymph nodes, largest in the prevascular space measuring 8 mm. No th oracic lymphadenopathy by CT size criteria. Borderline caliber to the main right and left pulmonary arteries up to 2.5 cm. Some strandy and mild dependent atelectasis in the lower lungs. No consolidation or pleural effusion. There appears to be a large central area of hypodensity within the liver measuring up to 10.1 x 6.3 c m. Spleen is enlarged measuring up to 16.1 cm on axial series. DISH throughout the mid and lower thoracic spine. IMPRESSION: 1. NO ACUTE PULMONARY PROCESS. POSSIBLE UNDERLYING PULMONARY ARTERIAL HYPERTENSION. 2. LARGE CENTRAL AREA OF HYPODENSITY WITHIN THE LIVER MEASURING UP TO 10.1 CM. CORRELATE FOR ANY KNOW N DIAGNOSIS. FURTHER ASSESSMENT FOR POTENTIAL UNDERLYING NEOPLASM IS ADVISED. 3. SPLENOMEGALY AT 16.1 CM. SIMILAR COMPARED TO THE 2019 MRI. WE NOTE THAT MRI RAISED CONCERN FOR UN DERLYING CIRRHOSIS
--- NOTE | 2023-02-13 11:05 | MR ---
EXAMINATION TYPE: MR brain wo/w con DATE OF EXAM: 02/13/2023 COMPARISON: CT 02/12/2020 HISTORY: Left facial weakness TECHNIQUE: Multiplanar, multisequence images of the brain and brainstem is performed without and with IV contras t, utilizing 10 mL intravenous Gadavist . FINDINGS: Diffusion weighted images demonstrate no evidence of a recent infarct or other diffusion ab normality. There is a couple foci of abnormal signal in the white matter which are nonspecific but could be asso ciated with hypertension and remote white matter ischemia.. Midline structures demonstrate normal morphology. The craniocervical junction appears within normal limits. Post contrast images demonstrate no abnormal enhancement. The dural venous sinuses appear pa tent. Small centimeter fluid attenuation along the medial margin of the left temporal lobe stent towa rds the cavernous sinus could represent a tiny cyst or Nasal septal deviation. There are changes of chronic sinusitis. Orbits are symmetric and IMPRESSION: 1. No evidence of acute ischemia. No midline shift or mass effect. No enhancing mass. 2. Mild degenerative change. Couple scattered areas of abnormal foci in the white matter are nonspeci fic. Differential diagnosis would include hypertension, migraine headaches and remote microvascular i schemia.
[2023-02-13 11:25] LABS: Glucose,Whole Blood 99 mg/dL (70-110)
--- NOTE | 2023-02-13 11:57 | P.CRDCN ---
History of Present Illness Consult date: 02/13/23 Reason for Consult (text): tachycardia History of present illness: HISTORY OF PRESENTING ILLNESS This is a 57-year-old male patient of Dr. Acosta past medical history significant for sinus tachycardia, rheumatoid arthritis, multiple abdominal surgeries and former nicotine dependence. We have been asked to see in consultation for tachycardia. Patient states that his heart rate is usually running around 125 all the time. Last week he started going up in the 1 4145. Yesterday when he was getting gassy developed a numbness to his left face but he coughed all day and didn't notice that he was having any problems until he started to 2 and he still had a numbness on his left side of his face that did not seem to be working correctly. He denies having any fever or chills, no cough, no chest pain, no lightheadedness or dizziness. He has had cardiac monitoring in the past revealing sinus tachycardia. He has been started on atenolol and he is feeling better. Patient is undergoing a neurology workup regarding the facial weakness and is waiting for an MRI scheduled for today. EKG reveals sinus tachycardia with heart rate of 114. Chest xray negative for an acute cardiopulmonary process. CAT scan of the brain revealed no acute process CT angiogram of the head and neck revealed no flow-limiting stenosis bilateral carotid bifurcations. Normal variant [place] of [place]. CT of the chest revealed no acute pulmonary process. Hypodensity within the liver splenomegaly at 16.1 cm. Platelet count 78 otherwise CBC unremarkable. Potassium 4.6, BUN 20 creatinine 1.04. ALT 52 otherwise liver function tests have normalized since admission. Initial total bilirubin 1.4, AST 100, ALT 79, alkaline phosphatase 89. Troponin negative 3. CK was 402 on admission now 118. Triglycerides 81, cholesterol 141, LDL 61, HDL 63. TSH 0.438 with normal free T4 of 2.01. He takes no daily cardiac medications. Echocardiogram obtained 08/2020 reveals preserved LV systolic function with ejection fraction 55-60% with mild tricuspid regurgitation. REVIEW OF SYSTEMS At the time of my exam: CONSTITUTIONAL: Denies fever or chills. CARDIOVASCULAR: Denies chest pain, shortness of breath, orthopnea, PND or palpitations. RESPIRATORY: Denies cough. GASTROINTESTINAL: Denies abdominal pain, diarrhea, constipation, nausea or vomiting. MUSCULOSKELETAL: Denies myalgias. NEUROLOGIC: Denies numbness, tingling, headacbe or weakness. ENDOCRINE: Denies fatigue, weight change, polydipsia or polyurina. GENITOURINARY: Denies burning, hematuria or urgency with micturation. HEMATOLOGIC: Denies history of anemia or bleeding. PHYSICAL EXAMINATION Blood pressure 108/66 eart rate 78 febrile and maintaining oxygen saturation on room air. CONSTITUTIONAL: No apparent distress. HEENT: Head is normocephalic. Pupils are equal, round. Sclerae anicteric. Mucous membranes of the mouth are moist. No JVD. No carotid bruit. CHEST EXAMINATION: Lungs are clear to auscultation. No chest wall tenderness is noted on palpation or with deep breathing. HEART EXAMINATION: Regular rate and rhythm. S1, S2 heard. No murmurs, gallops or rub. ABDOMEN: Soft, nontender. Positive bowel sounds. EXTREMITIES: 2+ peripheral pulses, no lower extremity edema and no calf t enderness. NEUROLOGIC EXAMINATION: Patient is awake, alert and oriented x3. ASSESSMENT Numbness left face Inappropriate sinus tachycardia Transaminitis PLAN Continue patient on atenolol Patient is cleared for discharge with follow-up with Dr. Acosta in the office in one week. Thank you kindly for this consultation. Nurse Practitioner note has been reviewed, I agree with a documented findings and plan of care. Patient was seen and examined. Past Medical History Past Medical History: Rheumatoid Arthritis (RA) Additional Past Medical History / Comment(s): current incisional hernia, past hx shingles,tachycardia, states current elevated liver enzymes being followed up History of Any Multi-Drug Resistant Organisms: None Reported Past Surgical History: Cholecystectomy, Hernia Repair Additional Past Surgical History / Comment(s): umb hernia repair x3 with mesh Past Anesthesia/Blood Transfusion Reactions: No Reported Reaction Additional Past Anesthesia/Blood Transfusion Reaction / Comment(s): no hx blood transfusion Past Psychological History: No Psychological Hx Reported Smoking Status: Never smoker Past Alcohol Use History: Occasional Additional Past Alcohol Use History / Comment(s): quit smoking approx 2003 Past Drug Use History: None Reported - Past Family History Mother Family Medical History: Deep Vein Thrombosis (DVT) Medications and Allergies Home Medications Medication Instructions Recorded Confirmed Type HYDROcodone/APAP 7.5-325MG [[place] 1 tab PO BID PRN 09/06/20 02/11/23 History 7.5-325] Etanercept [Enbrel Sureclick] 50 mg SQ MO 02/11/23 02/11/23 History ursodioL [Ursodiol] 500 mg PO BID 02/11/23 02/11/23 History Allergies Allergy/AdvReac Type Severity Reaction Status Date / Time latex Allergy Rash/Hives Verified 02/11/23 19:16 Physical Exam Vitals: Vital Signs Temp Pulse Resp BP Pulse Ox 02/13/23 08:13 97.5 F L 78 16 108/66 99 02/13/23 04:00 98 F 86 17 111/66 98 02/13/23 01:44 91 16 02/12/23 23:49 98.3 F 91 16 114/76 96 02/12/23 20:00 98.4 F 92 16 137/73 96 02/12/23 15:21 97.7 F 111 H 16 130/72 99 02/12/23 14:00 111 H 16 02/12/23 11:11 97.7 F 111 H 16 147/75 98 Intake and Output 02/12/23 02/13/23 02/13/23 22:59 06:59 14:59 Intake Total 120 358 Balance 120 358 Intake: Oral 120 358 Other: Voiding Method Toilet Toilet Toilet # Voids 1 1 # Bowel Movements 1 Results 02/13/23 04:32 02/13/23 04:32 Cardiac Enzymes 02/13/23 Range/Units 04:32 AST 50 (17-59) U/L CBC 02/13/23 Range/Units 04:32 WBC 8.6 (3.8-10.6) k/uL RBC 4.44 (4.30-5.90) m/uL Hgb 14.8 (13.0-17.5) gm/dL Hct 43.3 (39.0-53.0) % Plt Count 78 L (150-450) k/uL Comprehensive Metabolic Panel 02/12/23 02/13/23 Range/Units 19:51 04:32 Sodium 137 137 (137-145) mmol/L Potassium 4.9 4.6 (3.5-5.1) mmol/L Chloride 106 108 H (98-107) mmol/L Carbon Dioxide 26 24 (22-30) mmol/L BUN 19 20 (9-20) mg/dL Creatinine 1.17 1.04 (0.66-1.25) mg/dL Glucose 122 H 125 H (74-99) mg/dL Calcium 8.8 8.6 (8.4-10.2) mg/dL AST 50 (17-59) U/L ALT 52 H (4-49) U/L Alkaline Phosphatase 70 (38-126) U/L Total Protein 7.7 (6.3-8.2) g/dL Albumin 3.3 L (3.5-5.0) g/dL Current Medications Generic Name Dose Route Start Last Admin Trade Name Freq PRN Reason Stop Dose Admin Acetaminophen 650 mg 02/11/23 21:47 Acetaminophen Tab 325 Mg Tab PO Q6HR PRN Pain Hydrocodone Bitart/Acetaminophen 1 each 02/11/23 21:51 02/13/23 08:22 Hydrocodone/Apap 7.5-325mg 1 Each Tab PO 1 each BID PRN Administration Pain Aspirin 325 mg 02/12/23 09:00 02/13/23 08:23 Aspirin 325 Mg Tab PO 325 mg DAILY MARK Administration Atenolol 25 mg 02/12/23 16:00 02/13/23 08:23 Atenolol 25 Mg Tab PO 25 mg BID MARK Administration Dextrose/Water 25 ml 02/12/23 13:33 Dextrose 50% Syringe 50 Ml IVP PER PROTOCOL PRN Hypoglycemia Protocol Dextrose/Water 50 ml 02/12/23 13:33 Dextrose 50% Syringe 50 Ml IVP PER PROTOCOL PRN Hypoglycemia Protocol Sodium Chloride 1,000 mls @ 20 mls/hr 02/11/23 22:00 02/12/23 20:22 Saline 0.9% IV Not Given .Q24H MARK Insulin Aspart 0 unit 02/12/23 17:30 02/13/23 05:55 Insulin Aspart (Novolog) 100 Unit/Ml Vial SQ Not Given ACHS MARK Protocol Non-Formulary Medication 500 mg 02/12/23 09:00 02/13/23 08:14 Ursodiol [Ursodiol] PO Not Given BID MARK Pantoprazole Sodium 40 mg 02/12/23 17:30 02/13/23 06:10 Pantoprazole 40 Mg Tablet PO 40 mg AC-BID MARK Administration Prednisone 80 mg 02/12/23 13:30 02/13/23 08:23 Prednisone 20 Mg Tab PO 80 mg DAILY MARK Administration Valacyclovir HCl 1,000 mg 02/12/23 13:30 02/13/23 08:23 Valacyclovir Hcl 1,000 Mg Tablet PO 1,000 mg BID MARK Administration Protocol Intake and Output 02/12/23 02/13/23 02/13/23 22:59 06:59 14:59 Intake Total 120 358 Balance 120 358 Intake: Oral 120 358 Other: Voiding Method Toilet Toilet Toilet # Voids 1 1 # Bowel Movements 1 02/13/23 04:32 02/13/23 04:32
[2023-02-13] MEDS ORDERED: ARTIFICIAL TEARS OINTMENT 3.5 GM TUBE BOTH EYES SCH (13:00)
--- NOTE | 2023-02-13 13:04 | P.PN ---
Subjective Progress Note Date: 02/13/23 The patient seen at bedside and the feels about the same. He continues to have facial weakness. Denies of any new neurological issues appear Objective - Vital Signs Vital signs: Vital Signs Temp 97.5 F L 02/13/23 08:13 Pulse 78 02/13/23 08:13 Resp 16 02/13/23 08:13 BP 108/66 02/13/23 08:13 Pulse Ox 99 02/13/23 08:13 FiO2 Intake & Output 02/12/23 02/13/23 02/13/23 18:59 06:59 18:59 Intake Total 118 120 358 Balance 118 120 358 Weight 105.687 kg Intake: Oral 118 120 358 Other: Voiding Method Toilet Toilet Toilet # Voids 1 # Bowel Movements 1 - Exam GENERAL: The patient is lying in bed and is not in acute distress. HENT: Using otoscope, no erythema noted, no vesicles and appears normal bilaterally. NEUROLOGICAL: Higher mental function: The patient is awake, alert, oriented to self, place and time. Patient is following commands. No aphasia and no neglect. Cranial nerves: The pupils are round, equal and reactive to light and accommodation. Visual sen are full to confrontation throughout. Extraocular movement is intact no nystagmus is noted. Facial sensation is normal to touch throughout. The facial strength is has left upper and lower extremity weakness. Hearing is normal bilaterally to hand rub. Tongue is midline and moved [id number] without any difficulty. No dysarthria is noted. Shoulder shrug is normal bilaterally. Motor: The strength is 5 over 5 throughout. Normal tone and bulk. Cerebellum: Normal finger to nose heel to perez bilaterally. Sensation: Sensation is normal to touch throughout. Reflexes (right/left): 2+ Plantars are downgoing bilaterally. Some of the workup during the hospital visit consisted of: Platelet is 66,000. AST of 100 and ALT of 79 CK levels for 102 Lipid panel is triglyceride of 81, cholesterol 141, LDL [address] is reported as no acute process. Follow-up MRI can be performed as clinically indicated. Personally reviewed the CT and I agree with report. CT angiography is reported as no flow-limiting stenosis bilateral carotid bifurcation. Normal variant [place] of [place]. MR the brain is reported as no evidence of acute ischemia. No midline shift or mass effect. No enhancing mass. Mild degenerative changes. Couple scattered area of abnormal foci in the white matter are nonspecific. Differential diagnoses include hypertension, migraine and headache and remote microvascular ischemia - Labs CBC & Chem 7: 02/13/23 04:32 02/13/23 04:32 Labs: Abnormal Lab Results - Last 24 Hours (Table) 02/12/23 02/12/23 02/12/23 Range/Units 02:26 16:46 19:51 Plt Count (150-450) k/uL Lymphocytes # (1.0-4.8) k/uL Chloride (98-107) mmol/L Glucose 122 H (74-99) mg/dL POC Glucose (mg/dL) 124 H (70-110) mg/dL ALT (4-49) U/L Albumin (3.5-5.0) g/dL TSH 0.438 L (0.465-4.680) mIU/L 02/13/23 02/13/23 02/13/23 Range/Units 04:32 04:32 05:54 Plt Count 78 L (150-450) k/uL Lymphocytes # 0.6 L (1.0-4.8) k/uL Chloride 108 H (98-107) mmol/L Glucose 125 H (74-99) mg/dL POC Glucose (mg/dL) 122 H (70-110) mg/dL ALT 52 H (4-49) U/L Albumin 3.3 L (3.5-5.0) g/dL TSH (0.465-4.680) mIU/L Assessment and Plan Assessment: This is a 57-year-old gentleman who presented to our facility because of left upper and lower facial weakness that started around 11 PM on 02/11/2023 Acute left upper and lower extremity facial weakness is bells palsy. MRI Brain is negative for acute/subacute CVA or mass. Elevated liver function is chronic and was told that due to rheumatoid arthritis and he follows up with GI Slightly elevated CK level History of thrombocytopenia and currently it's the in his 60s thousand Rheumatoid arthritis Plan: I I placed the patient on prednisone 80 mg daily (for 14 days. Today is day 3/14 since received on in ED) and Valacyclovir 1000mg bid for 7 days (today is day 2/7). Recommend a left eye patch. I ordered lubricant on left eye QID to avoid any corneal ulcers Recommend sugar monitoring and we'll defer the management to the primary team TSH: 0.438, free T4: 2.01. Will defer management to primary. Lyme disease: Pending. If positive, recommend I.D. consult. GI prophylaxis I started the patient on Protonix 40 mg twice a day. Upon discharge recommend the patient follow up with a neurologist as an outpatient since she has chronic numbness in the right lower extremity and consider EMG with nerve conduction study as outpatient. We'll defer the rest of the medical management to the primary team. Plan discussed with the patient. Otherwise, no additional neurological work-up. Please notify neurology team if any further concerns. Time with Patient: Less than 30
[2023-02-13] MEDS: ARTIFICIAL TEARS OINTMENT 3.5 GM TUBE LEFT EYE SCH ×3 (13:45→19:55)
--- NOTE | 2023-02-13 14:36 | CA ---
Transthoracic Echo Report Name: Sandeep Montoya Age: 57 Gender: M : 1965 Exam Date: 02/13/2023 08:56 Exam Location: [place] [facility] Ht (in): 71 Wt (lb): 233 Ordering Physician: Malvin Mackey MD Attending/Referring Phys: Supervisor Tan Room Maria G Almonte [facility] Procedure CPT: Indications: elevated heart rate Cardiac Hx: Technical Quality: Fair Contrast 1: Total Dose (mL): Contrast 2: Total Dose (mL): MEASUREMENTS (Male / Female) Normal Values 2D ECHO LV Diastolic Diameter PLAX 4.6 cm 4.2 - 5.9 / 3.9 - 5.3 cm LV Systolic Diameter PLAX 3.0 cm IVS Diastolic Thickness 1.0 cm 0.6 - 1.0 / 0.6 - 0.9 cm LVPW Diastolic Thickness 1.0 cm 0.6 - 1.0 / 0.6 - 0.9 cm LV Relative Wall Thickness 0.4 LVOT Diameter 2.0 cm Ascending Aorta Diameter 2.9 cm M-MODE Aortic Root Diameter MM 2.6 cm LA Systolic Diameter MM 3.3 cm LA Ao Ratio MM 1.3 AV Cusp Separation MM 2.0 cm DOPPLER AV Peak Velocity 148.1 cm/s AV Peak Gradient 8.8 mmHg AV Mean Velocity 99.4 cm/s AV Mean Gradient 4.4 mmHg AV Velocity Time Integral 31.3 cm LVOT Peak Velocity 136.8 cm/s LVOT Peak Gradient 7.5 mmHg LVOT Velocity Time Integral 29.8 cm LVOT Stroke Volume 95.1 cm??? LVOT Stroke Volume Index 42.3 ml/m??? LVOT Cardiac Index 3263.0 cm???/min???m??? AV Area Cont Eq vti 3.0 cm??? AV Area Cont Eq pk 2.9 cm??? Mitral E Point Velocity 66.8 cm/s Mitral A Point Velocity 81.4 cm/s Mitral E to A Ratio 0.8 MV Deceleration Time 221.3 ms LV E' Lateral Velocity 9.5 cm/s Mitral E to LV E' Lateral Ratio 7.1 LV E' Septal Velocity 7.2 cm/s Mitral E to LV E' Septal Ratio 9.3 TR Peak Velocity 256.6 cm/s TR Peak Gradient 26.3 mmHg Right Atrial Pressure 8.0 mmHg Pulmonary Artery Systolic Pressu 34.3 mmHg Right Ventricular Systolic Press 34.3 mmHg FINDINGS Left Ventricle Normal Left ventricular size, wall thickness, systolic function with no obvious regional wall motion abnormalities. Left ventricular ejection fraction is estimated at 60-65%. Right Ventricle Mild right ventricular dilatation normal systolic function Right Atrium Mild right atrial dilatation. Left Atrium Mild left atrial dilatation Mitral Valve Structurally normal mitral valve. Mild mitral regurgitation. Aortic Valve Trileaflet aortic valve. No aortic valve stenosis or regurgitation. Tricuspid Valve Structurally normal tricuspid valve. [id number] tricuspid regurgitation. Pulmonic Valve Structurally normal pulmonic valve. No pulmonic regurgitation. Pericardium No pericardial effusion. Aorta Normal size aortic root and proximal ascending aorta. CONCLUSIONS Normal Left ventricular size, wall thickness, systolic function. Left ventricular ejection fraction is estimated at 60-65%. No obvious regional wall motion abnormalities. Mild left atrial dilatation Moderate tricuspid regurgitation. RVSP 30 mmHg No prior echo to compare with in [facility] database Previewed by: Dr Bryan Weinberg (Electronically Signed) Final Date: 13 February 2023 14:35
[2023-02-13 16:14] LABS: Glucose,Whole Blood 111 mg/dL (70-110)
[2023-02-13 19:47] LABS: Glucose,Whole Blood 118 mg/dL (70-110)
--- NOTE | 2023-02-13 20:42 | DS ---
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 He had tachycardia. Cardiology saw him. CAT scan showed pulmonary hypertension, cirrhosis and a liver mass. MRI of the liver has been ordered prior to discharge and to follow up with that as an outpatient with the liver. Pulmonary hypertension, COPD, given inhaler to go home with. Continue with his Tenormin for hypertension; for tachycardia, aspirin. He will follow up with the [facility] for cirrhosis. He had ultrasound of the abdomen a month ago, which did not show a mass, but they did not visualize the liver well. He had an MRI 2 to 3 years ago, did not show a mass. He said 8 to 10 cm mass now in the liver with alpha 1 fetoprotein for cancer screening and ordered an MRI of the liver to be done prior to discharge. Please see further orders. Medications as tolerated as mentioned above. Diet as tolerated. Follow up with Dr. Cahmberlain. MMMARIBETH / EJN: [id number] /
[2023-02-13 20:56] VITALS: RESP 18
[2023-02-13] MEDS: SODIUM CHLORIDE 0.9% 1,000 ML IV SCH (21:24)
[2023-02-14 05:51] LABS: Glucose,Whole Blood 79 mg/dL (70-110)
[2023-02-14] MEDS: PANTOPRAZOLE 40 MG TABLET PO SCH (06:05)
[2023-02-14] MEDS: INSULIN ASPART (NovoLOG) 100 UNIT/ML VIAL SQ SCH ×2 (06:05→12:15)
[2023-02-14] MEDS: valACYclovir HCL 1,000 MG TABLET PO SCH (08:37)
[2023-02-14] MEDS: ASPIRIN 325 MG TAB PO SCH (08:37)
[2023-02-14] MEDS: predniSONE 20 MG TAB PO SCH (08:37)
[2023-02-14] MEDS: HYDROcodone/APAP 7.5-325MG 1 EACH TAB PO PRN (08:37)
[2023-02-14] MEDS: URSODIOL 500 MG PO SCH (08:39)
[2023-02-14] MEDS: ARTIFICIAL TEARS OINTMENT 3.5 GM TUBE LEFT EYE SCH ×2 (08:39→12:16)
[2023-02-14] MEDS ORDERED: atenoloL 25 MG TAB PO SCH (09:00)
--- NOTE | 2023-02-14 09:20 | P.PN ---
Subjective This is a pleasant 57 years old male with past medical history of multiple medical problems as below. Presents with left facial weakness suspected secondary to Ariza's palsy after he developed by neurologist, patient already started on prednisone and Valcyte cover and looks his stable with no new complaints. Neurologist. The patient and patient was discharged by Dr. Mackey yesterday however discharge was held because CAT scan of the chest showing large liver mass about 10.1 cm was splenomegaly 16.1 cm and with evidence of cirrhosis. Patient already knows that he has possible cirrhosis and he follows up with Dr. Chamberlain. He is aware of the mass and he agrees with the MRI of the liver which is ordered by Dr. Mackey and is still pending now. Objective - Vital Signs Vital signs: Vital Signs Temp 97.5 F L 02/14/23 04:00 Pulse 78 02/14/23 04:00 Resp 18 02/14/23 04:00 BP 100/64 02/14/23 04:00 Pulse Ox 98 02/14/23 04:00 FiO2 Intake & Output 02/13/23 02/14/23 02/14/23 18:59 06:59 18:59 Intake Total 656 500 Balance 656 500 Intake: Oral 656 500 Other: Voiding Method Toilet Toilet # Voids 2 1 - Exam GENERAL: The patient is alert and oriented x3, not in any acute distress. Well developed, well nourished. HEENT: Pupils are round and equally reacting to light. EOMI. No scleral icterus. No conjunctival pallor. Normocephalic, atraumatic. No pharyngeal erythema. No thyromegaly. CARDIOVASCULAR: S1 and S2 present. No murmurs, rubs, or gallops. PULMONARY: Chest is clear to auscultation, no wheezing , no crackles. ABDOMEN: Soft, nontender, nondistended, normoactive bowel sounds. No palpable organomegaly. MUSCULOSKELETAL: No joint swelling or deformity. EXTREMITIES: No cyanosis, clubbing, or pedal edema. NEUROLOGICAL: Gross neurological examination did not reveal any focal deficits. SKIN: No rashes. no petechiae. - Labs CBC & Chem 7: 02/13/23 04:32 02/13/23 04:32 Labs: Abnormal Lab Results - Last 24 Hours (Table) 02/13/23 02/13/23 Range/Units 16:13 19:46 POC Glucose (mg/dL) 111 H 118 H (70-110) mg/dL Assessment and Plan Assessment: Liver mass, with hypodensity about 10.1 cm Left facial Ariza's palsy Chronic thrombocytopenia Mild transaminitis, improved Splenomegaly 16.1 Possible liver cirrhosis. Plan: Follow-up results of MRI of the brain Labs and medication were reviewed.. Continue same treatment. Continue with symptomatic treatment. Resume home medication. Monitor labs and vitals. DVT and GI prophylaxis. Further recommendations as per clinical course of the patient DVT prophylaxis: Subcutaneous heparin GI Prophylaxis: Ppi Prognosis is guarded
[2023-02-14 11:36] LABS: Glucose,Whole Blood 83 mg/dL (70-110)
[2023-02-14 13:09] VITALS: BP 115/71; PULSE 74; TEMP 97.8
--- NOTE | 2023-02-14 14:46 | MR ---
EXAMINATION TYPE: MR liver wo/w con DATE OF EXAM: 02/14/2023 2:09 PM INDICATION: Patient age:Male; 57 years old; Reason for study: liver mass. Past hx of abnormal liver study 2019, ordered stat for liver mass COMPARISON: Biopsy 06/01/2019, MRI liver 05/11/2019, ultrasound 06/28/2018 TECHNIQUE: Multiplanar multi-sequence imaging was performed without contrast. Post contrast imaging was performed. Post IV contrast subtraction images were also submitted for review. IV Contrast: 10 cc Gadavist FINDINGS: LOWER CHEST: No gross irregularity. ABDOMEN Liver: The liver is heterogenous in its appearance with nodular contour. There is some central high T 2 low T1 signal within the right hepatic lobe which extends towards the right hepatic lobe dome. Over all this area demonstrates enhancement which persists on delayed imaging. No evidence for capsular re traction or ductal dilation. Findings not significantly changed from prior in 2019. No arterial phase hyperenhancing lesion identified within the liver to suggest hepatocellular carcino ma. Gallbladder and Bile ducts: Unremarkable. Pancreas: Unremarkable. Spleen: Spleen is enlarged for size measuring up to 14.3 cm. Adrenal glands: Unremarkable. Kidneys: Left kidney subcentimeter high T2 signal probable cysts. No evidence of hydronephrosis bilat erally. Stomach and Bowel: Unremarkable as visualized. Scattered colonic diverticula are present. Peritoneum: No evidence of pneumoperitoneum or free fluid. Vasculature: Unremarkable. No aortic aneurysm. Musculoskeletal: The osseous structures appear intact. Lymph Nodes: No gross evidence for lymphadenopathy. Abdominal wall: Unremarkable. IMPRESSION: 1. Redemonstration of large geographic area of mass-like delayed enhancement in the hepatic lobe. Th is was previous the biopsy on 06/01/2019. Findings suggest fibrosis versus less likely cholangiocarcin eros because of the lack of ductal dilatation or capsular retraction. 2. Splenomegaly suggestive of portal hypertension the setting of cirrhosis. 3. Colonic diverticulosis
[2023-02-14] MEDS ORDERED: LORazepam 2 MG/ML INJ IV ONE (16:00)
[2023-02-14] MEDS ORDERED: HEPARIN SODIUM,PORCINE/PF 5,000 UNIT/0.5 ML SYRINGE SQ SCH (21:00)
== END 2023-02-14 15:17 | disposition home or self-care (01) ==
LOC: EC 16:53 → 5NMEDONC 21:47 → INTOOBSV 21:47 → 3SCARD 22:05
PROVIDERS: ADMIT Family Medicine; ATTEND Family Medicine
DX: G51.0 Bell's palsy (principal); R00.0 Tachycardia, unspecified; I27.20 Pulmonary hypertension, unspecified; R16.2 Hepatomegaly with splenomegaly, not elsewhere classified; K74.60 Unspecified cirrhosis of liver; J44.9 Chronic obstructive pulmonary disease, unspecified; M06.9 Rheumatoid arthritis, unspecified; R74.8 Abnormal levels of other serum enzymes; D69.6 Thrombocytopenia, unspecified; R79.89 Other specified abnormal findings of blood chemistry; Z90.49 Acquired absence of other specified parts of digestive tract; Z79.899 Other long term (current) drug therapy; Z91.040 Latex allergy status; Z86.19 Personal history of other infectious and parasitic diseases; Z87.891 Personal history of nicotine dependence; Z83.2 Family history of diseases of the blood and blood-forming organs and certain disorders involving the immune mechanism
CPT/HCPCS: 96374; 99291; 36415; 93005; 93306; 97161; 97165; 87529; 85379; 84439; 80061; 80053 ×3; 80048; 84443; 82550 ×3; 84484 ×2; 85025 ×3; 85610; 85730; 82105; 86618; 83036; 71046; 70496; 71250; 70450; 70498; 70553; 74183; G0378 ×3; J2060; J7512 ×4; Q9967; A9585 ×2

== ENCOUNTER → 2023-02-25 | Outpatient (CLI) | payer OTHER ==
--- NOTE | 2023-02-25 10:31 | US ---
EXAMINATION TYPE: US liver DATE OF EXAM: 02/25/2023 COMPARISON: MR liver 02/14/2023, abdominal ultrasound 01/12/2023 CLINICAL INDICATION: Male, 57 years old with history of K74.3 PRIMARY BILIARY CIRRHOSIS; cirrhosis TECHNIQUE: Multiple sonographic images of the right upper quadrant are obtained. FINDINGS: EXAM MEASUREMENTS: Liver Length: 14.7 cm Gallbladder Wall: Surgically absent cm CBD: 0.8 cm Right Kidney: 9.1x5.2x4.6 cm [employer] NOTES: Pancreas: Obscured by bowel gas Liver: heterogenous area noted again rt. lobe Gallbladder: Surgically absent CBD: enlarged Right Kidney: wnl exam slightly limited from scanning intercostally due to bowel gas Pancreas is obscured by overlying bowel gas. Large heterogenous region again noted within the right h epatic lobe. No visualized intrahepatic biliary ductal dilatation. Gallbladder is surgically absent. Common bile duct is mildly dilated which is not unexpected in the setting of cholecystectomy. Right k idney appears unremarkable without hydronephrosis, nephrolithiasis, or solid contour deforming mass. IMPRESSION: Limited examination due to overlying bowel gas. 1. Redemonstration of heterogenous region within the right hepatic lobe corresponding to reported fib rosis versus less likely clinical carcinoma on recent MR liver. 2. Postcholecystectomy changes.
== END | disposition home or self-care (01) ==
LOC: RADUSWWP 08:48
PROVIDERS: ATTEND Internal Medicine Gastroenterology
DX: K74.3 Primary biliary cirrhosis (principal); Z90.49 Acquired absence of other specified parts of digestive tract
CPT/HCPCS: 76705